=== PATIENT | male | born 1970 | race Caucasian/White ===

== ENCOUNTER 2021-09-22 07:02 | Outpatient (REF) | payer OTHER, SELFPAY ==
[2021-09-22 10:35] LABS: MANUAL DIFF FLAG NO
[2021-09-22 10:42] LABS: Basophils Percent Auto 0.3 % (0-2); Eosinophils Absolute Auto 0.1 X10*3/uL (0.0-0.4); Hematocrit 39.5 % (42.0-52.0); Hemoglobin 13.4 g/dl (14.0-18.0); Imm Gran Abs Auto 0.02 X10*3/uL (0.00-0.03); Imm Gran Pct Auto 0.3 % (0.0-0.4); Lymphocytes Percent Auto 31.5 % (20-40); Mean Corpuscular HGB Conc 33.9 g/dl (31.0-36.0); Mean Corpuscular Hemoglobin 30.6 pg (27.0-33.0); Mean Corpuscular Volume 90.2 fL (80.0-98.0); Mean Platelet Volume 10.2 fL (9.4-12.4); Monocytes Absolute Auto 0.6 X10*3/uL (0.1-1.2); Monocytes Percent Auto 9.1 % (2-11); Neutrophils Absolute Auto 3.7 x10*3/uL (2.0-8.3); Neutrophils Percent Auto 56.8 % (45-73); Platelet Count 287 X10*3/uL (160-400); Red Blood Count 4.38 X10*6/uL (4.60-5.80); Red Cell Distribution Width 12.6 % (11.0-16.0); White Blood Count 6.5 X10*3/uL (4.8-10.8)
[2021-09-22 11:24] LABS: Alanine Aminotransferase 16 U/L (0-40); Alkaline Phosphatase 98 U/L (39-117); Anion Gap 12 (12-20); Aspartate Amino Transferase 18 U/L (5-37); Bilirubin Total 0.7 mg/dL (0.0-1.0); Blood Urea Nitrogen 14 mg/dL (9-16); Carbon Dioxide 27 mmol/L (22-29); Chloride 105 mmol/L (96-108); Cholesterol 150 mg/dL; Estimated Glomerular Filt Rate > 60; Glucose Fasting 104 mg/dL (60-99); HDL Cholesterol 36 mg/dL; LDL Cholesterol Calculated 98 mg/dl; Potassium 3.8 mmol/L (3.3-5.1); Sodium 140 mmol/L (135-145); Total Protein 6.7 g/dL (6.5-8.0); Triglycerides 80 mg/dL
[2021-09-22 11:25] LABS: TSH reflex Free T4 1.05 uIU/mL (0.32-4.0)
[2021-09-22 11:37] LABS: HBS Num1 69.38 mIU/mL (0-7.99); HIV AB/AG Nonreactive (Nonreactive); HIV Num 1 0.08 S/CO (0.00-0.99); Hepatitis B Core Antibody Nonreactive (Nonreactive); Hepatitis B Surface Antigen Negative (Negative); ~Hepatitis B Surface Antibody REACTIVE (Nonreactive); ~Hepatitis C Antibody Nonreactive (Nonreactive)
[2021-09-23 08:22] LABS: Syphilis Screen Nonreactive (Nonreactive)
[2021-09-27 15:17] LABS: Testosterone, Free 110.6 pg/mL (35.0-155.0); Testosterone, Total 687 ng/dL (250-1100)
== END 2021-09-22 07:03 | disposition home or self-care (01) ==
LOC: HO.WFDLDS 07:02
PROVIDERS: Visit Provider Family Medicine
DX: Z00.00 Encounter for general adult medical examination without abnormal findings (principal); Z12.5 Encounter for screening for malignant neoplasm of prostate; Z11.4 Encounter for screening for human immunodeficiency virus [HIV]; Z11.3 Encounter for screening for infections with a predominantly sexual mode of transmission; E29.1 Testicular hypofunction
CPT/HCPCS: 80053; 80061; 84153; 84402; 84403; 84443; 85025; 86704; 86706; 86780; 86803; 87340; 87389

== ENCOUNTER → 2021-11-25 10:26 | Outpatient (BNVA) | payer OTHER, MEDICAID, SELFPAY | PROVIDERS: PCP Family Medicine; Visit Provider Internal Medicine | DX: F11.20 Opioid dependence, uncomplicated (principal); F14.10 Cocaine abuse, uncomplicated; F32.9 Major depressive disorder, single episode, unspecified | CPT/HCPCS: 80305 ==

== ENCOUNTER 2022-10-23 06:04 | Outpatient (REF) | payer OTHER, MEDICAID, SELFPAY ==
--- NOTE | ~2022-10-23 | XR_ITS ---
EXAMINATION: XR CHEST CLINICAL INFORMATION: Other specified symptoms and signs involving the respiratory system. COMPARISON: Previous chest x-ray April 2013. TECHNIQUE: 2 views of the chest were obtained. FINDINGS: The cardiac and mediastinal contours are stable. The lungs are clear. There is no pleural effusion or pneumothorax. There are degenerative changes of the spine. XR/XR chest 2V IMPRESSION: No evidence for acute disease in the chest.
== END 2022-10-23 06:05 | disposition home or self-care (01) ==
LOC: HO.XRAY 06:04
PROVIDERS: PCP Family Medicine; Visit Provider Family Medicine
DX: R09.89 Other specified symptoms and signs involving the circulatory and respiratory systems (principal)
CPT/HCPCS: 71046

== ENCOUNTER 2022-12-10 19:18 | Emergency (ER) | payer OTHER, MEDICAID, SELFPAY ==
--- NOTE | ~2022-12-10 | XR_ITS ---
EXAMINATION: XR CHEST CLINICAL INFORMATION: Palpitations. COMPARISON: Chest radiograph 10/23/2022. TECHNIQUE: Frontal view of the chest was obtained. FINDINGS: No significant abnormality is noted involving the heart, lungs, mediastinum, bony thorax or soft tissues. XR/XR chest 1V IMPRESSION: Unremarkable examination.
[2022-12-10 19:23] VITALS: BP 121/97; PULSE 110; RESP 18; TEMP 37; O2SAT 96; BMI 34.4
--- NOTE | 2022-12-10 19:23 | ECG_ITS ---
Test Reason : CHEST PAIN Blood Pressure : / mmHG Vent. Rate : 107 BPM Atrial Rate : 107 BPM P-R Int : 170 ms QRS Dur : 078 ms QT Int : 312 ms P-R-T Axes : 043 048 079 degrees QTc Int : 416 ms Sinus tachycardia Minimal voltage criteria for LVH, may be normal variant ( Sokolow-Monzon ) Nonspecific T wave abnormality Abnormal ECG No previous ECGs available Referred By: Matthew Raymundo Electronically Signed By:VERONICA GRAY MD
--- NOTE | 2022-12-10 19:25 | ED_ITS ---
HPI - General Adult General Chief complaint: Chest Pain <YUMIKO Ellington - Last Filed: 12/11/22 13:07> Stated complaint: chest palpitations <YUMIKO Ellington - Last Filed: 12/11/22 13:07> Time Seen by Provider: 12/10/22 19:49 <YUMIKO Ellington - Last Filed: 12/11/22 13:07> Source: patient <Toribio Thakkar MD - Last Filed: 12/11/22 00:58> Mode of arrival: ambulatory <Toribio Thakkar MD - Last Filed: 12/11/22 00:58> Limitations: no limitations <Toribio Thakkar MD - Last Filed: 12/11/22 00:58> History of Present Illness HPI narrative: Patient been having episodes of palpitation off and on for last 3 weeks was seen at [facility] last week for same workup negative patient does have history of anxiety, feels very anxious on arrival does have history of substance abuse but been sober for a while no significant alcohol use no dizziness or syncope e pisode no chest pain <Toribio Thakkar MD - Last Filed: 12/11/22 00:58> Related Data Home medications: Previous Rx's Medication Instructions Recorded syringe with needle, safety 3 mL #100 ea 03/02/22 22 gauge x 1 1/2 omeprazole 40 mg capsule,delayed 40 mg PO DAILY 30 days #30 caps 05/25/22 release bisacodyl 5 mg tablet,delayed 10 mg PO ONCE colonoscopy prep 1 06/14/22 release (Dulcolax (bisacodyl)) day #2 tabs polyethylene glycol 3350 17 238 g PO ONCE 1 day #238 grams 06/14/22 gram/dose oral powder (Miralax) lactulose 10 gram/15 mL oral 15 ml PO BEDTIME PRN for 06/16/22 solution constipation #1,419 mL carbamide peroxide 6.5 % ear drops 5 drp otic (ear) right DAILY 4 08/16/22 (Debrox) days #15 mL fluticasone propionate 50 1 spray intranasal Q12H 30 days 08/16/22 mcg/actuation nasal #16 grams spray,suspension (Flonase Allergy Relief) bupropion HCl 150 mg tablet,12 hr 150 mg PO BID 30 days #60 tabs 01/02/23 sustained-release prednisone 20 mg tablet 40 mg PO DAILY 5 days #10 tabs 10/17/22 furosemide 40 mg tablet 20 mg PO DAILY 30 days #15 tabs 10/26/22 amlodipine 5 mg tablet 5 mg PO DAILY 30 days #30 tabs 11/13/22 testosterone cypionate 200 mg/mL 100 mg (0.5 mL) IM QWEEK 28 days 11/14/22 intramuscular oil #2 mL sildenafil 100 mg tablet 100 mg PO DAILY PRN sexual 11/24/22 activity 30 days #4 tabs <YUMIKO Ellington - Last Filed: 12/11/22 13:07> Allergies/adverse reactions: Allergies Allergy/AdvReac Type Severity Reaction Status Date / Time trazodone [TRAZODONE] Allergy Intermediate vomiting Verified 12/10/22 19:22 <YUMIKO Ellington - Last Filed: 12/11/22 13:07> Review of Systems Review of Systems: Yes all other systems are reviewed and are negative <Toribio Thakkar MD - Last Filed: 12/11/22 00:58> [facility] Past Medical History Medical History: Medical History Cocaine use disorder Depression Heartburn Hernia Leg swelling Low testosterone in male <YUMIKO Ellington - Last Filed: 12/11/22 13:07> Surgical History: Surgical History Hx of colonoscopy <YUMIKO Ellington - Last Filed: 12/11/22 13:07> Family History Family History: Family History Mother Emphysema of lung Cancer Father Cancer Emphysema of lung Substance use disorder <YUMIKO Ellington - Last Filed: 12/11/22 13:07> Social History Social History: Social History Housing: House Alcohol intake: never Patient Tobacco Use Status: Current everyday Tobacco user Tobacco use type: Cigarette Cigarette Packs Per Day: 1 Smoked in Last 30 Days: Yes e-Cigarette/Vaping Use: Never Used Second Hand Smoke Exposure: Yes Use of substances other than those prescribed or required for medical reasons: No Substance Use Type: Crack/Cocaine, Heroin and Marijuana Advance Directives: No Advance Directives Information Provided: No service: No Current occupational status: employed Current occupation: [email or web address] director Current occupational exposures/hazards: No Cognitive needs: No Hearing needs: No Vision needs: No <YUMIKO Ellington - Last Filed: 12/11/22 13:07> Physical Exam ED Vital Signs: Vital Signs - 24 hr 12/10/22 19:23 12/10/22 20:35 Temperature 98.6 F Pulse Rate 110 H 95 Respiratory Rate 18 16 Blood Pressure 121/97 H 166/85 H Pulse Oximetry 96 99 Oxygen Delivery Method Room Air Room Air BMI result Body Mass Index 34.4 <YUMIKO Ellington - Last Filed: 12/11/22 13:07> Vital Signs - 24 hr 12/10/22 19:23 12/10/22 20:35 Temperature 98.6 F Pulse Rate 110 H 95 Respiratory Rate 18 16 Blood Pressure 121/97 H 166/85 H Pulse Oximetry 96 99 Oxygen Delivery Method Room Air Room Air BMI result Body Mass Index 34.4 <Toribio Thakkar MD - Last Filed: 12/11/22 00:58> Appearance: Alert. Oriented Xreact ENT: Pharynx normal. Oral Mucosa moist Neck: Normal inspection. Neck supple. CVS: Normal heart rate and rhythm. Pulses normal. No murmur/rubs/gallops Respiratory: No respiratory distress. Equal air entry bilateral, no wheezing/rales/rhonchi Abdomen: Soft and nontender. Bowel sounds are present, no mass palpable, no CVA tenderness Skin: Skin warm and dry. Normal skin color. Normal skin turgor. Extremities: No lower extremity edema. No calf tenderness Neuro: Oriented X 3. No motor deficit. <Toribio Thakkar MD - Last Filed: 12/11/22 00:58> Course Course Course Narrative: RME: 52 yold male presents to the ED for chest palpitations for couple of weeks. Deneis chest pain and more palpitations. labs/EKG, and chest xray ordered <YUMIKO Ellington - Last Filed: 12/11/22 13:07> Medical Decision Making Medical Decision Making MDM Narrative: Patient with palpitation episode manager cardiac showed occasional unifocal PVCs no arrhythmias notice otherwise labs are stable discharge patient home advised to decrease caffeine and stress <Toribio Thakkar MD - Last Filed: 12/11/22 00:58> Differential Diagnosis Differential Diagnoses: The differential diagnosis associated with the presentation includes <Toribio Thakkar MD - Last Filed: 12/11/22 00:58> SVT/AFib/PVCs/PACs <Toribio Thakkar MD - Last Filed: 12/11/22 00:58> Lab Data [facility] Lab Attestation statement: I reviewed the patient's lab results. <Toribio Thakkar MD - Last Filed: 12/11/22 00:58> Result Diagrams: 12/10/22 20:16 12/10/22 20:16 <YUMIKO Ellingotn - Last Filed: 12/11/22 13:07> Labs: Lab Results 12/10/22 12/10/22 12/10/22 Range/Units 20:16 20:16 20:16 WBC 11.6 H (4.8-10.8) X10*3/uL RBC 5.11 (4.60-5.80) X10*6/uL Hgb 15.2 (14.0-18.0) g/dl Hct 44.8 (42.0-52.0) % MCV 87.7 (80.0-98.0) fL MCH 29.7 (27.0-33.0) pg MCHC 33.9 (31.0-36.0) g/dl RDW 12.7 (11.0-16.0) % Plt Count 280 (160-400) X10*3/uL MPV 10.1 (9.4-12.4) fL Immature Gran % (Auto) 0.3 (0.0-0.4) % Neut % (Auto) 66.5 (45-73) % Lymph % (Auto) 22.6 (20-40) % Brule % (Auto) 9.1 (2-11) % Eos % (Auto) 1.2 (0-4) % Baso % (Auto) 0.3 (0-2) % Lymph # (Auto) 2.6 (1.2-4.9) X10*3/uL Brule # (Auto) 1.1 (0.1-1.2) X10*3/uL Eos # (Auto) 0.1 (0.0-0.4) X10*3/uL Baso # (Auto) 0.0 (0.0-0.2) X10*3/uL Abs Immat Gran (auto) 0.04 H (0.00-0.03) X10*3/uL Absolute Neuts (auto) 7.7 (2.0-8.3) x10*3/uL Absolute Nucleated RBC 0.000 (0.0-0.012) X10*3/uL Nucleated RBC % (auto) 0.0 (0.0-0.2) /100WBC PT 12.1 (10.0-13.1) SEC INR 1.1 (0.9-1.1) APTT 31.6 (26.0-36.4) SEC Sodium 140 (135-145) mmol/L Potassium 4.3 (3.3-5.1) mmol/L Chloride 102 (96-108) mmol/L Carbon Dioxide 30 H (22-29) mmol/L Anion Gap 12 (12-20) BUN 19 H (9-16) mg/dL Creatinine 0.99 (0.5-1.4) mg/dL Estim Creat Clear Calc 106.6 Estimated GFR > 60 Random Glucose 97 (60-115) mg/dL Calcium 9.1 (8.4-10.2) mg/dL Magnesium 2.1 (1.6-2.6) mg/dL Total Bilirubin 0.3 (0.0-1.0) mg/dL AST 22 (5-37) U/L ALT 33 (0-40) U/L Alkaline Phosphatase 90 (39-117) U/L Troponin I High Sens (<3.5-35.0) ng/L B-Natriuretic Peptide (<100) pg/mL Total Protein 6.9 (6.5-8.0) g/dL Albumin 4.3 (3.5-5.0) g/dL TSH 0.71 (0.32-4.0) uIU/mL 12/10/22 12/10/22 Range/Units 20:16 20:16 WBC (4.8-10.8) X10*3/uL RBC (4.60-5.80) X10*6/uL Hgb (14.0-18.0) g/dl Hct (42.0-52.0) % MCV (80.0-98.0) fL MCH (27.0-33.0) pg MCHC (31.0-36.0) g/dl RDW (11.0-16.0) % Plt Count (160-400) X10*3/uL MPV (9.4-12.4) fL Immature Gran % (Auto) (0.0-0.4) % Neut % (Auto) (45-73) % Lymph % (Auto) (20-40) % Brule % (Auto) (2-11) % Eos % (Auto) (0-4) % Baso % (Auto) (0-2) % Lymph # (Auto) (1.2-4.9) X10*3/uL Brule # (Auto) (0.1-1.2) X10*3/uL Eos # (Auto) (0.0-0.4) X10*3/uL Baso # (Auto) (0.0-0.2) X10*3/uL Abs Immat Gran (auto) (0.00-0.03) X10*3/uL Absolute Neuts (auto) (2.0-8.3) x10*3/uL Absolute Nucleated RBC (0.0-0.012) X10*3/uL Nucleated RBC % (auto) (0.0-0.2) /100WBC PT (10.0-13.1) SEC INR (0.9-1.1) APTT (26.0-36.4) SEC Sodium (135-145) mmol/L Potassium (3.3-5.1) mmol/L Chloride (96-108) mmol/L Carbon Dioxide (22-29) mmol/L Anion Gap (12-20) BUN (9-16) mg/dL Creatinine (0.5-1.4) mg/dL Estim Creat Clear Calc Estimated GFR Random Glucose (60-115) mg/dL Calcium (8.4-10.2) mg/dL Magnesium (1.6-2.6) mg/dL Total Bilirubin (0.0-1.0) mg/dL AST (5-37) U/L ALT (0-40) U/L Alkaline Phosphatase (39-117) U/L Troponin I High Sens 3.5 (<3.5-35.0) ng/L B-Natriuretic Peptide < 10 (<100) pg/mL Total Protein (6.5-8.0) g/dL Albumin (3.5-5.0) g/dL TSH (0.32-4.0) uIU/mL <YUMIKO Ellington - Last Filed: 12/11/22 13:07> Lab Results 12/10/22 12/10/22 12/10/22 Range/Units 20:16 20:16 20:16 WBC 11.6 H (4.8-10.8) X10*3/uL RBC 5.11 (4.60-5.80) X10*6/uL Hgb 15.2 (14.0-18.0) g/dl Hct 44.8 (42.0-52.0) % MCV 87.7 (80.0-98.0) fL MCH 29.7 (27.0-33.0) pg MCHC 33.9 (31.0-36.0) g/dl RDW 12.7 (11.0-16.0) % Plt Count 280 (160-400) X10*3/uL MPV 10.1 (9.4-12.4) fL Immature Gran % (Auto) 0.3 (0.0-0.4) % Neut % (Auto) 66.5 (45-73) % Lymph % (Auto) 22.6 (20-40) % Brule % (Auto) 9.1 (2-11) % Eos % (Auto) 1.2 (0-4) % Baso % (Auto) 0.3 (0-2) % Lymph # (Auto) 2.6 (1.2-4.9) X10*3/uL Brule # (Auto) 1.1 (0.1-1.2) X10*3/uL Eos # (Auto) 0.1 (0.0-0.4) X10*3/uL Baso # (Auto) 0.0 (0.0-0.2) X10*3/uL Abs Immat Gran (auto) 0.04 H (0.00-0.03) X10*3/uL Absolute Neuts (auto) 7.7 (2.0-8.3) x10*3/uL Absolute Nucleated RBC 0.000 (0.0-0.012) X10*3/uL Nucleated RBC % (auto) 0.0 (0.0-0.2) /100WBC PT 12.1 (10.0-13.1) SEC INR 1.1 (0.9-1.1) APTT 31.6 (26.0-36.4) SEC Sodium 140 (135-145) mmol/L Potassium 4.3 (3.3-5.1) mmol/L Chloride 102 (96-108) mmol/L Carbon Dioxide 30 H (22-29) mmol/L Anion Gap 12 (12-20) BUN 19 H (9-16) mg/dL Creatinine 0.99 (0.5-1.4) mg/dL Estim Creat Clear Calc 106.6 Estimated GFR > 60 Random Glucose 97 (60-115) mg/dL Calcium 9.1 (8.4-10.2) mg/dL Magnesium 2.1 (1.6-2.6) mg/dL Total Bilirubin 0.3 (0.0-1.0) mg/dL AST 22 (5-37) U/L ALT 33 (0-40) U/L Alkaline Phosphatase 90 (39-117) U/L Troponin I High Sens (<3.5-35.0) ng/L B-Natriuretic Peptide (<100) pg/mL Total Protein 6.9 (6.5-8.0) g/dL Albumin 4.3 (3.5-5.0) g/dL TSH 0.71 (0.32-4.0) uIU/mL 12/10/22 12/10/22 Range/Units 20:16 20:16 WBC (4.8-10.8) X10*3/uL RBC (4.60-5.80) X10*6/uL Hgb (14.0-18.0) g/dl Hct (42.0-52.0) % MCV (80.0-98.0) fL MCH (27.0-33.0) pg MCHC (31.0-36.0) g/dl RDW (11.0-16.0) % Plt Count (160-400) X10*3/uL MPV (9.4-12.4) fL Immature Gran % (Auto) (0.0-0.4) % Neut % (Auto) (45-73) % Lymph % (Auto) (20-40) % Brule % (Auto) (2-11) % Eos % (Auto) (0-4) % Baso % (Auto) (0-2) % Lymph # (Auto) (1.2-4.9) X10*3/uL Brule # (Auto) (0.1-1.2) X10*3/uL Eos # (Auto) (0.0-0.4) X10*3/uL Baso # (Auto) (0.0-0.2) X10*3/uL Abs Immat Gran (auto) (0.00-0.03) X10*3/uL Absolute Neuts (auto) (2.0-8.3) x10*3/uL Absolute Nucleated RBC (0.0-0.012) X10*3/uL Nucleated RBC % (auto) (0.0-0.2) /100WBC PT (10.0-13.1) SEC INR (0.9-1.1) APTT (26.0-36.4) SEC Sodium (135-145) mmol/L Potassium (3.3-5.1) mmol/L Chloride (96-108) mmol/L Carbon Dioxide (22-29) mmol/L Anion Gap (12-20) BUN (9-16) mg/dL Creatinine (0.5-1.4) mg/dL Estim Creat Clear Calc Estimated GFR Random Glucose (60-115) mg/dL Calcium (8.4-10.2) mg/dL Magnesium (1.6-2.6) mg/dL Total Bilirubin (0.0-1.0) mg/dL AST (5-37) U/L ALT (0-40) U/L Alkaline Phosphatase (39-117) U/L Troponin I High Sens 3.5 (<3.5-35.0) ng/L B-Natriuretic Peptide < 10 (<100) pg/mL Total Protein (6.5-8.0) g/dL Albumin (3.5-5.0) g/dL TSH (0.32-4.0) uIU/mL <Toribio Thakkar MD - Last Filed: 12/11/22 00:58> Discharge Plan Discharge Clinical Impression: Heart palpitations <YUMIKO Ellington - Last Filed: 12/11/22 13:07> Patient Disposition: Home, Self-Care <YUMIKO Ellington - Last Filed: 12/11/22 13:07> Instructions: Heart Palpitations (ED) <YUMIKO Ellington - Last Filed: 12/11/22 13:07> Additional Instructions: Relax avoid caffeine drink Follow-up with wholesale and retail merchant/PCP for further monitoring including Holter placement Report to the ER if passing out episode/worsening of palpitation <YUMIKO Ellington - Last Filed: 12/11/22 13:07> Prescriptions: No Action (DME) syringe with needle, safety 3 mL 22 gauge x 1 1/2 syringe See Rx Instructions .ROUTE DIRECTED Qty: 100 11RF Rx Instructions: As directed lactulose 10 gram/15 mL solution 15 ml PO BEDTIME PRN (Reason: for constipation) Qty: 1419 0RF bupropion HCl 150 mg tablet sustained-release 12 hr 150 mg PO BID 30 Days Qty: 60 2RF furosemide 40 mg tablet 20 mg PO DAILY 30 Days Qty: 15 2RF amlodipine 5 mg tablet 5 mg PO DAILY 30 Days Qty: 30 2RF testosterone cypionate 200 mg/mL oil 100 mg IM QWEEK 28 Days Qty: 2 1RF sildenafil 100 mg tablet 100 mg PO DAILY PRN (Reason: sexual activity) 30 Days Qty: 4 2RF Rx Instructions: administer 30 minutes to 4 hours before activity omeprazole 40 mg capsule,delayed release(DR/EC) 40 mg PO DAILY 30 Days Qty: 30 2RF Debrox 6.5 % drops 5 drp otic (ear) right DAILY 4 Days Qty: 15 0RF fluticasone propionate [Flonase Allergy Relief] 50 mcg/actuation spr ay,suspension 1 spray intranasal Q12H 30 Days Qty: 16 2RF Rx Instructions: administer into each nostril prednisone 20 mg tablet 40 mg PO DAILY 5 Days Qty: 10 0RF bisacodyl [Dulcolax (bisacodyl)] 5 mg tablet,delayed release (DR/EC) 10 mg PO ONCE 1 Days Qty: 2 0RF Rx Instructions: Take 2 tablets by mouth at 12:00pm the day before your procedure. polyethylene glycol 3350 [Miralax] 17 gram/dose powder 238 g PO ONCE 1 Days Qty: 238 0RF Rx Instructions: Take as directed by mouth the day before your procedure. <YUMIKO Ellington - Last Filed: 12/11/22 13:07> Interventions: ED Discharge Assessment Last Done: 12/10/22 21:51 <YUMIKO Ellington - Last Filed: 12/11/22 13:07> Discharge Date/Time: 12/10/22 21:51 <YUMIKO Ellington - Last Filed: 12/11/22 13:07>
[2022-12-10 20:22] LABS: MANUAL DIFF FLAG NO
[2022-12-10 20:23] LABS: Basophils Percent Auto 0.3 % (0-2); Eosinophils Absolute Auto 0.1 X10*3/uL (0.0-0.4); Eosinophils Percent Auto 1.2 % (0-4); Hematocrit 44.8 % (42.0-52.0); Hemoglobin 15.2 g/dl (14.0-18.0); Imm Gran Abs Auto 0.04 X10*3/uL (0.00-0.03); Imm Gran Pct Auto 0.3 % (0.0-0.4); Lymphocytes Absolute Auto 2.6 X10*3/uL (1.2-4.9); Lymphocytes Percent Auto 22.6 % (20-40); Mean Corpuscular HGB Conc 33.9 g/dl (31.0-36.0); Mean Corpuscular Hemoglobin 29.7 pg (27.0-33.0); Mean Corpuscular Volume 87.7 fL (80.0-98.0); Mean Platelet Volume 10.1 fL (9.4-12.4); Monocytes Absolute Auto 1.1 X10*3/uL (0.1-1.2); Monocytes Percent Auto 9.1 % (2-11); Neutrophils Absolute Auto 7.7 x10*3/uL (2.0-8.3); Neutrophils Percent Auto 66.5 % (45-73); Platelet Count 280 X10*3/uL (160-400); Red Blood Count 5.11 X10*6/uL (4.60-5.80); Red Cell Distribution Width 12.7 % (11.0-16.0); White Blood Count 11.6 X10*3/uL (4.8-10.8)
[2022-12-10 20:30] LABS: INTERNATIONAL NORM RATIO 1.1 (0.9-1.1); Prothrombin Time 12.1 SEC (10.0-13.1)
[2022-12-10 20:33] LABS: Partial Thromboplastin Time 31.6 SEC (26.0-36.4)
[2022-12-10 20:35] VITALS: BP 166/85; PULSE 95; RESP 16; O2SAT 99
[2022-12-10 20:43] LABS: B Type Natriuretic Peptide < 10 pg/mL (<100)
[2022-12-10 20:45] LABS: Alanine Aminotransferase 33 U/L (0-40); Albumin Level 4.3 g/dL (3.5-5.0); Alkaline Phosphatase 90 U/L (39-117); Anion Gap 12 (12-20); Aspartate Amino Transferase 22 U/L (5-37); Bilirubin Total 0.3 mg/dL (0.0-1.0); Blood Urea Nitrogen 19 mg/dL (9-16); Calcium 9.1 mg/dL (8.4-10.2); Carbon Dioxide 30 mmol/L (22-29); Chloride 102 mmol/L (96-108); Creatinine Clr Calc Pharmacy 106.6; Estimated Glomerular Filt Rate > 60; Glucose Random 97 mg/dL (60-115); Magnesium 2.1 mg/dL (1.6-2.6); Potassium 4.3 mmol/L (3.3-5.1); Sodium 140 mmol/L (135-145); Total Protein 6.9 g/dL (6.5-8.0)
[2022-12-10 20:46] LABS: Troponin-I High Sensitivity 3.5 ng/L (<3.5-35.0)
[2022-12-10 21:00] LABS: TSH reflex Free T4 0.71 uIU/mL (0.32-4.0)
== END 2022-12-10 21:51 | disposition home or self-care (01) ==
PROVIDERS: Physician Assistant; Emergency Provider Internal Medicine; PCP Family Medicine
DX: R07.89 Other chest pain (principal); R00.2 Palpitations; R06.02 Shortness of breath; F17.210 Nicotine dependence, cigarettes, uncomplicated; Z71.6 Tobacco abuse counseling; Z79.899 Other long term (current) drug therapy
CPT/HCPCS: 36415; 71045; 80053; 83735; 83880; 84443; 84484; 85025; 85610; 85730; 93005; 99284; 99285

== ENCOUNTER 2022-12-20 07:38 | Inpatient (IN) | payer OTHER, SELFPAY ==
[2022-12-20 07:57] VITALS: BP 137/93; PULSE 111; RESP 18; TEMP 36.9; O2SAT 96; BMI 34.4
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
--- NOTE | 2022-12-20 08:25 | ECG_ITS ---
Test Reason : amc Blood Pressure : / mmHG Vent. Rate : 109 BPM Atrial Rate : 109 BPM P-R Int : 164 ms QRS Dur : 084 ms QT Int : 334 ms P-R-T Axes : 003 022 053 degrees QTc Int : 449 ms Sinus tachycardia Cannot rule out Anterior infarct , age undetermined Abnormal ECG When compared with ECG of 10-DEC-2022 19:40, No significant change was found Referred By: Emily Skinner Electronically Signed By:XAVIER ACUÑA
[2022-12-20 09:24] LABS: MANUAL DIFF FLAG NO
[2022-12-20 09:26] LABS: Basophils Percent Auto 0.4 % (0-2); Eosinophils Absolute Auto 0.1 X10*3/uL (0.0-0.4); Eosinophils Percent Auto 0.6 % (0-4); Hematocrit 47.4 % (42.0-52.0); Hemoglobin 16.2 g/dl (14.0-18.0); Imm Gran Abs Auto 0.06 X10*3/uL (0.00-0.03); Imm Gran Pct Auto 0.6 % (0.0-0.4); Lymphocytes Absolute Auto 1.8 X10*3/uL (1.2-4.9); Lymphocytes Percent Auto 16.7 % (20-40); Mean Corpuscular HGB Conc 34.2 g/dl (31.0-36.0); Mean Corpuscular Hemoglobin 29.8 pg (27.0-33.0); Mean Corpuscular Volume 87.3 fL (80.0-98.0); Mean Platelet Volume 9.9 fL (9.4-12.4); Monocytes Absolute Auto 0.9 X10*3/uL (0.1-1.2); Monocytes Percent Auto 7.9 % (2-11); Neutrophils Percent Auto 73.8 % (45-73); Platelet Count 323 X10*3/uL (160-400); Red Blood Count 5.43 X10*6/uL (4.60-5.80); Red Cell Distribution Width 12.7 % (11.0-16.0); White Blood Count 10.8 X10*3/uL (4.8-10.8)
[2022-12-20 09:38] LABS: Ethanol < 10 mg/dL
[2022-12-20 09:41] LABS: Alanine Aminotransferase 41 U/L (0-40); Albumin Level 4.4 g/dL (3.5-5.0); Alkaline Phosphatase 102 U/L (39-117); Anion Gap 15 (12-20); Aspartate Amino Transferase 19 U/L (5-37); Bilirubin Direct 0.1 mg/dL (0.0-0.5); Bilirubin Total 0.3 mg/dL (0.0-1.0); Blood Urea Nitrogen 22 mg/dL (9-16); Calcium 9.1 mg/dL (8.4-10.2); Carbon Dioxide 23 mmol/L (22-29); Chloride 105 mmol/L (96-108); Creatinine Clr Calc Pharmacy 100.5; Estimated Glomerular Filt Rate > 60; Glucose Random 158 mg/dL (60-115); Magnesium 2.2 mg/dL (1.6-2.6); Potassium 4.5 mmol/L (3.3-5.1); Sodium 138 mmol/L (135-145); Total Protein 7.2 g/dL (6.5-8.0)
[2022-12-20 09:43] LABS: COVID-19 Test Negative (Negative); IDNOW Serial# BCCEAD1C
--- NOTE | 2022-12-20 09:54 | PC.NURSE ---
Pt reporting feeling safe in this space. Denies SI at this time. Denies AH,HI. Pt eating and drinking. No dangerous behaviors noted.
[2022-12-20 10:01] LABS: Amphetamine Screen Urine Not Detected (Not Detect); Barbiturates, Urine Not Detected (Not Detect); Benzodiazepines Screen Urine Not Detected (Not Detect); Cannabinoid Screen Urine Not Detected (Not Detect); Cocaine Screen Urine Not Detected (Not Detect); Fentanyl, urine POSITIVE (Not Detect); Opiate Screen Urine Not Detected (Not Detect); Phencyclidine Screen Urine Not Detected (Not Detect)
--- NOTE | 2022-12-20 13:12 | PC.NURSE ---
Pt requesting to be discharged. Care Team Notified.
--- NOTE | 2022-12-20 15:00 | PHA.MEDREC ---
Pharmacy Consult ? Medication Reconciliation Pharmacy has completed the medication reconciliation. Pharmacy has reviewed med rec done by nurse in the pod.
[2022-12-20] MEDS: LORazepam 1 MG TABLET 2 MG PO (19:58)
[2022-12-20 23:18] VITALS: BP 135/92; PULSE 85; TEMP 36.3; O2SAT 96
[2022-12-20] MEDS: Acetaminophen 325 MG TABLET 650 MG PO (23:41)
[2022-12-20] MEDS: cloNIDine HCL 0.1 MG TABLET PO (23:41)
--- NOTE | 2022-12-21 02:42 | PC.ADMIT ---
Philip was admitted to unit from the ER at 2305 via stretcher escorted by staff. He is alert, cooperative with vital signs, verbalized feeling safe with no SI/AVH. reported feeling tired and wanted to go to bed, escorted to his room after skin/sharps check completed by counselor. Admission assessment to be completed in the morning.
[2022-12-21] MEDS: amLODIPine Besylate 5 MG TABLET PO (08:27)
[2022-12-21] MEDS: Omeprazole 40 MG CAPSULE.DR PO (08:27)
[2022-12-21] MEDS: Furosemide 20 MG TABLET PO (08:28)
[2022-12-21] MEDS: buPROPion HCl XL 300 MG TAB.ER.24H PO (08:28)
[2022-12-21 09:00] VITALS: BP 134/95; PULSE 90; RESP 17; TEMP 36.9; O2SAT 98
[2022-12-21 09:12] LABS: Alanine Aminotransferase 34 U/L (0-40); Albumin Level 4.2 g/dL (3.5-5.0); Alkaline Phosphatase 100 U/L (39-117); Anion Gap 14 (12-20); Aspartate Amino Transferase 17 U/L (5-37); Bilirubin Total 0.6 mg/dL (0.0-1.0); Blood Urea Nitrogen 17 mg/dL (9-16); Calcium 9.2 mg/dL (8.4-10.2); Carbon Dioxide 26 mmol/L (22-29); Chloride 106 mmol/L (96-108); Cholesterol 186 mg/dL; Estimated Glomerular Filt Rate > 60; Glucose Fasting 104 mg/dL (60-99); HDL Cholesterol 38 mg/dL; LDL Cholesterol Calculated 128 mg/dl; Potassium 4.8 mmol/L (3.3-5.1); Sodium 141 mmol/L (135-145); Total Protein 6.9 g/dL (6.5-8.0); Triglycerides 100 mg/dL
[2022-12-21 09:43] LABS: Folate 14.9 ng/mL (> or = 4.0); TSH reflex Free T4 0.99 uIU/mL (0.32-4.0); Vitamin B12 418 pg/mL (200-900)
[2022-12-21 11:03] VITALS: BMI 31.6
[2022-12-21 12:28] LABS: Amphetamine Screen Urine Not Detected (Not Detect); Barbiturates, Urine Not Detected (Not Detect); Benzodiazepines Screen Urine Not Detected (Not Detect); Cannabinoid Screen Urine Not Detected (Not Detect); Cocaine Screen Urine Not Detected (Not Detect); Fentanyl, urine POSITIVE (Not Detect); Opiate Screen Urine Not Detected (Not Detect); Phencyclidine Screen Urine Not Detected (Not Detect)
--- NOTE | 2022-12-21 17:06 | HO.PSYCHPN ---
Subjective Subjective Reason For Visit: SI Paranoia Diagnostics Vital Signs (24Hr): Vital Signs - 24 hr 12/20/22 23:18 12/21/22 09:00 Temperature 97.3 F 98.5 F Pulse Rate 85 90 Respiratory Rate 17 Blood Pressure 135/92 H 134/95 H Pulse Oximetry 96 98 Oxygen Delivery Method Room Air Room Air BMI result Body Mass Index 31.6 Labs 12/20/22 09:18 12/21/22 08:18 Labs: Laboratory Results - last 48 hr 12/20/22 12/20/22 12/20/22 09:18 09:18 09:18 WBC 10.8 RBC 5.43 Hgb 16.2 Hct 47.4 MCV 87.3 MCH 29.8 MCHC 34.2 RDW 12.7 Plt Count 323 MPV 9.9 Immature Gran % (Auto) 0.6 H Neut % (Auto) 73.8 H Lymph % (Auto) 16.7 L [place] % (Auto) 7.9 Eos % (Auto) 0.6 Baso % (Auto) 0.4 Lymph # (Auto) 1.8 [place] # (Auto) 0.9 Eos # (Auto) 0.1 Baso # (Auto) 0.0 Abs Immat Gran (auto) 0.06 H Absolute Neuts (auto) 8.0 Absolute Nucleated RBC 0.000 Nucleated RBC % (auto) 0.0 Sodium 138 Potassium 4.5 Chloride 105 Carbon Dioxide 23 Anion Gap 15 BUN 22 H Creatinine 1.05 Estim Creat Clear Calc 100.5 Estimated GFR > 60 Random Glucose 158 H Fasting Glucose Calcium 9.1 Magnesium 2.2 Total Bilirubin 0.3 Direct Bilirubin 0.1 AST 19 ALT 41 H Alkaline Phosphatase 102 Total Protein 7.2 Albumin 4.4 Triglycerides Cholesterol LDL Cholesterol, Calc HDL Cholesterol Vitamin B12 Folate TSH Urine Opiates Screen Urine Fentanyl Screen Ur Barbiturates Screen Ur Phencyclidine Scrn Ur Amphetamines Screen U Benzodiazepines Scrn Urine Cocaine Screen U Marijuana (THC) Screen Ethyl Alcohol COVID-19 (APRIL) Negative COVID-19 Clin Com See Note 12/20/22 12/20/22 12/21/22 09:18 09:43 08:18 WBC RBC Hgb Hct MCV MCH MCHC RDW Plt Count MPV Immature Gran % (Auto) Neut % (Auto) Lymph % (Auto) [place] % (Auto) Eos % (Auto) Baso % (Auto) Lymph # (Auto) [place] # (Auto) Eos # (Auto) Baso # (Auto) Abs Immat Gran (auto) Absolute Neuts (auto) Absolute Nucleated RBC Nucleated RBC % (auto) Sodium 141 Potassium 4.8 Chloride 106 Carbon Dioxide 26 Anion Gap 14 BUN 17 H Creatinine 0.95 Estim Creat Clear Calc 111.0 Estimated GFR > 60 Random Glucose Fasting Glucose 104 H Calcium 9.2 Magnesium Total Bilirubin 0.6 Direct Bilirubin AST 17 ALT 34 Alkaline Phosphatase 100 Total Protein 6.9 Albumin 4.2 Triglycerides 100 Cholesterol 186 LDL Cholesterol, Calc 128 HDL Cholesterol 38 Vitamin B12 418 Folate 14.9 TSH 0.99 Urine Opiates Screen Not Detected Urine Fentanyl Screen POSITIVE H Ur Barbiturates Screen Not Detected Ur Phencyclidine Scrn Not Detected Ur Amphetamines Screen Not Detected U Benzodiazepines Scrn Not Detected Urine Cocaine Screen Not Detected U Marijuana (THC) Screen Not Detected Ethyl Alcohol < 10 COVID-19 (APRIL) COVID-[facility] 12/21/22 11:09 WBC RBC Hgb Hct MCV MCH MCHC RDW Plt Count MPV Immature Gran % (Auto) Neut % (Auto) Lymph % (Auto) [place] % (Auto) Eos % (Auto) Baso % (Auto) Lymph # (Auto) [place] # (Auto) Eos # (Auto) Baso # (Auto) Abs Immat Gran (auto) Absolute Neuts (auto) Absolute Nucleated RBC Nucleated RBC % (auto) Sodium Potassium Chloride Carbon Dioxide Anion Gap BUN Creatinine Estim Creat Clear Calc Estimated GFR Random Glucose Fasting Glucose Calcium Magnesium Total Bilirubin Direct Bilirubin AST ALT Alkaline Phosphatase Total Protein Albumin Triglycerides Cholesterol LDL Cholesterol, Calc HDL Cholesterol Vitamin B12 Folate TSH Urine Opiates Screen Not Detected Urine Fentanyl Screen POSITIVE H Ur Barbiturates Screen Not Detected Ur Phencyclidine Scrn Not Detected Ur Amphetamines Screen Not Detected U Benzodiazepines Scrn Not Detected Urine Cocaine Screen Not Detected U Marijuana (THC) Screen Not Detected Ethyl Alcohol COVID-19 (APRIL) COVID-[facility] Medications Medications Current Medications Acetaminophen (Acetaminophen 325 Mg Tablet) 650 mg PO Q6H PRN PRN Reason: Headache/Pain Mild Scale (1-3) Last Admin: 12/20/22 23:41 Dose: 650 mg Al Hydroxide/Mg Hydroxide (Magnesium Hydrox/Alum Hydrox 30 Ml Oral.Susp) 30 ml PO Q6H PRN PRN Reason: Heartburn/Nausea Amlodipine Besylate (Amlodipine Besylate 5 Mg Tablet) 5 mg PO DAILY [facility]; Protocol Last Admin: 12/21/22 08:27 Dose: 5 mg Bupropion HCl (Bupropion Hcl Xl 300 Mg Tab.Er.24h) 300 mg PO DAILY [facility] Last Admin: 12/21/22 08:28 Dose: 300 mg Clonidine HCl (Clonidine Hcl 0.1 Mg Tablet) 0.1 mg PO TID PRN; Protocol PRN Reason: Anxiety Last Admin: 12/20/22 23:41 Dose: 0.1 mg Furosemide (Furosemide 20 Mg Tablet) 20 mg PO DAILY [facility]; Protocol Last Admin: 12/21/22 08:28 Dose: 20 mg Hydroxyzine HCl (Hydroxyzine Hcl 25 Mg Tablet) 25 mg PO Q6H PRN PRN Reason: Anxiety Lactulose (Lactulose 20 Gm/30 Ml Solution) 10 gm PO BEDTIME PRN PRN Reason: for constipation Magnesium Hydroxide (Milk Of Magnesia 30 Ml Oral.Susp) 30 ml PO DAILY PRN PRN Reason: Constipation Omeprazole (Omeprazole 40 Mg Capsule.Dr) 40 mg PO DAILY [facility] Last Admin: 12/21/22 08:27 Dose: 40 mg Allergies Allergies Allergy/AdvReac Type Severity Reaction Status Date / Time trazodone [TRAZODONE] Allergy Intermediate vomiting Verified 12/10/22 19:22 Assessment & Plan Time Spent With Patient Time: Total time managing care of this patient today ____ minutes.
--- NOTE | 2022-12-21 17:26 | HO.PSYADMNOT ---
HPI Date of Service: 12/21/22 Chief Complaint: SI Paranoia Sources of Information: patient interviewed, chart reviewed and crisis/core team assessment reviewed Additional Sources of Information: Discharge summary requested from [facility] as pt was just discharged. HPI Subjective Notes: Craft Warning and Section 12B Healthcare Proxy: No Guardianship: No Narrative: 52 yo male, self presented to [facility] ED with reported disorganization of thoughts, SI with plan to crash his car, fear, paranoia. Reported hearing whispers that gangs were after him and were coming to get him at his job. Met with pt and Kristi Moctezuma [facility] and team. Pt is forthcoming, asks to discharge today. Explained 12B. States he was just discharged from [facility] unit after a 7 day stay. Worries that his job is in jeopardy (education provided). Pt reports when he returned home he was hearing voices of young adults telling him that a gang was after him-they were tapping the windows. He planned to purchase cameras to identify who was doing this. In the process of managing these sx, pt lost sleep and when he came to the ER was with significant sleep deprivation. He learned today, when talking with his son's mother who is a tenant that neighbors caught kids harrassing different families in their neighborhood. I took it the wrong way, I feared my life was in danger . With 1.5 days of no sleep states he was acting crazy. After sleeping well, states he feels in an improved state of mind, I took it too seriously . Identifies several stressors: Mother four months ago, pt is the executor, pt may lose the family home and is trying to keep it. 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 Past Psychiatric History: IP: [place]- November 2022 [place]- December 2022 OP: [facility] for therapy- reports no [facility] Med Trials: Call to Sharon Hernandez who report Bupropion SI, Clonidine Medical Evaluation Reviewed: Yes [facility] Medical History Cocaine use disorder Depression Heartburn Hernia Leg swelling Low testosterone in male Surgical History Hx of colonoscopy Social History: Born and raised locally. Has always lived in the area. 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 Substance History: Methadone for 10 years with [facility]. Recently stopped while admitted to [place]. [place] is his onsite case manager. Feeling better off Methadone and hopes to continue. Diagnostics Vital Signs (24Hr): Vital Signs - 24 hr 12/20/22 23:18 12/21/22 09:00 Temperature 97.3 F 98.5 F Pulse Rate 85 90 Respiratory Rate 17 Blood Pressure 135/92 H 134/95 H Pulse Oximetry 96 98 Oxygen Delivery Method Room Air Room Air BMI result Body Mass Index 31.6 Labs 12/20/22 09:18 12/21/22 08:18 Labs: Laboratory Results - last 48 hr 12/20/22 12/20/22 12/20/22 09:18 09:18 09:18 WBC 10.8 RBC 5.43 Hgb 16.2 Hct 47.4 MCV 87.3 MCH 29.8 MCHC 34.2 RDW 12.7 Plt Count 323 MPV 9.9 Immature Gran % (Auto) 0.6 H Neut % (Auto) 73.8 H Lymph % (Auto) 16.7 L Grady % (Auto) 7.9 Eos % (Auto) 0.6 Baso % (Auto) 0.4 Lymph # (Auto) 1.8 Grady # (Auto) 0.9 Eos # (Auto) 0.1 Baso # (Auto) 0.0 Abs Immat Gran (auto) 0.06 H Absolute Neuts (auto) 8.0 Absolute Nucleated RBC 0.000 Nucleated RBC % (auto) 0.0 Sodium 138 Potassium 4.5 Chloride 105 Carbon Dioxide 23 Anion Gap 15 BUN 22 H Creatinine 1.05 Estim Creat Clear Calc 100.5 Estimated GFR > 60 Random Glucose 158 H Fasting Glucose Calcium 9.1 Magnesium 2.2 Total Bilirubin 0.3 Direct Bilirubin 0.1 AST 19 ALT 41 H Alkaline Phosphatase 102 Total Protein 7.2 Albumin 4.4 Triglycerides Cholesterol LDL Cholesterol, Calc HDL Cholesterol Vitamin B12 Folate TSH Urine Opiates Screen Urine Fentanyl Screen Ur Barbiturates Screen Ur Phencyclidine Scrn Ur Amphetamines Screen U Benzodiazepines Scrn Urine Cocaine Screen U Marijuana (THC) Screen Ethyl Alcohol COVID-19 (APRIL) Negative COVID-19 Clin Com See Note 12/20/22 12/20/22 12/21/22 09:18 09:43 08:18 WBC RBC Hgb Hct MCV MCH MCHC RDW Plt Count MPV Immature Gran % (Auto) Neut % (Auto) Lymph % (Auto) Grady % (Auto) Eos % (Auto) Baso % (Auto) Lymph # (Auto) Grady # (Auto) Eos # (Auto) Baso # (Auto) Abs Immat Gran (auto) Absolute Neuts (auto) Absolute Nucleated RBC Nucleated RBC % (auto) Sodium 141 Potassium 4.8 Chloride 106 Carbon Dioxide 26 Anion Gap 14 BUN 17 H Creatinine 0.95 Estim Creat Clear Calc 111.0 Estimated GFR > 60 Random Glucose Fasting Glucose 104 H Calcium 9.2 Magnesium Total Bilirubin 0.6 Direct Bilirubin AST 17 ALT 34 Alkaline Phosphatase 100 Total Protein 6.9 Albumin 4.2 Triglycerides 100 Cholesterol 186 LDL Cholesterol, Calc 128 HDL Cholesterol 38 Vitamin B12 418 Folate 14.9 TSH 0.99 Urine Opiates Screen Not Detected Urine Fentanyl Screen POSITIVE H Ur Barbiturates Screen Not Detected Ur Phencyclidine Scrn Not Detected Ur Amphetamines Screen Not Detected U Benzodiazepines Scrn Not Detected Urine Cocaine Screen Not Detected U Marijuana (THC) Screen Not Detected Ethyl Alcohol < 10 COVID-19 (APRIL) COVID-19 [employer] 12/21/22 11:09 WBC RBC Hgb Hct MCV MCH MCHC RDW Plt Count MPV Immature Gran % (Auto) Neut % (Auto) Lymph % (Auto) Grady % (Auto) Eos % (Auto) Baso % (Auto) Lymph # (Auto) Grady # (Auto) Eos # (Auto) Baso # (Auto) Abs Immat Gran (auto) Absolute Neuts (auto) Absolute Nucleated RBC Nucleated RBC % (auto) Sodium Potassium Chloride Carbon Dioxide Anion Gap BUN Creatinine Estim Creat Clear Calc Estimated GFR Random Glucose Fasting Glucose Calcium Magnesium Total Bilirubin Direct Bilirubin AST ALT Alkaline Phosphatase Total Protein Albumin Triglycerides Cholesterol LDL Cholesterol, Calc HDL Cholesterol Vitamin B12 Folate TSH Urine Opiates Screen Not Detected Urine Fentanyl Screen POSITIVE H Ur Barbiturates Screen Not Detected Ur Phencyclidine Scrn Not Detected Ur Amphetamines Screen Not Detected U Benzodiazepines Scrn Not Detected Urine Cocaine Screen Not Detected U Marijuana (THC) Screen Not Detected Ethyl Alcohol COVID-19 (APRIL) COVID-19 Clin Com Meds/Allergies Meds Home Medications Medication Instructions Recorded Confirmed Type clonidine HCl 0.1 mg tablet 0.1 mg PO TID 12/20/22 12/20/22 History Narrative: Per David - Amlodipine, Bupropion SR, Clonidine, Lasix, Testosterone Allergies Allergies Allergy/AdvReac Type Severity Reaction Status Date / Time trazodone [TRAZODONE] Allergy Intermediate vomiting Verified 12/10/22 19:22 Mental Status Exam Mental Status Exam Patient Appearance: Appropriate Patient Orientation: Person, Place, Time and Situation Level of Consciousness: Alert Patient Behavior: Appropriate, Talkative and Good Eye Contact Mood Description: Constricted Affect Description: Constricted Patient Cognition Impaired: No Ability to Follow Directions: Good Speech Pattern: Spontaneous Speech Memory Description: Intact and Episodic Impaired Hallucinations: None and Auditory (reports neighborhood kids were harrassing him and others, tapping windows) Delusions: Not Present Thought Process: Distracted Thought Content: positive for Circumstantial, positive for Perseveration and positive for Suicidal Ideation (denies) Depressive Symptoms: Increased Anxiety Abnormal Motor Activity Signs and Symptoms: Restlessness Judgement: Fair Assessment & Plan Assessment & Plan (1) Brief reactive psychosis: Status: Acute Code(s): F23 - Brief psychotic disorder Plan 52 yo male, self presenting to [facility] with SI, paranoia, disorganization in consideration of sleep deprivation and neighborhood children harassing him and other neighbors. Pt felt that he was hearing voices telling him a gang was after hime, they were tapping the window-pt was frightened, unable to sleep, misinterpreted and felt his life was in danger. Reports he has slept since admission, has confirmed with his ex-, also his tenant that the neighborhood kids were doing this and, I took it too seriously . Pt currently on a Section 12B. Plan: Observe, monitor for breakthrough sx, as this is the third admit in 2 months for similiar sx. Collateral contacts Aftercare planning No med changes at this time-of note pt has weekly testosterone injections which may contribute to presenting symptoms. Patient educated on: therapeutic strategies Informed Consent: understands Reason for continued inpatient stay Substantial Risk for: rapid decompensation Statement Statement: I have reviewed the history and physical and performed a pertinent examination on my patient. No changes have occurred unless specified. If the History and Physical was not performed prior to admission, the Hospitalist's service will be consulted for completing the admission physical. Time Spent With Patient Time: Total time managing care of this patient today ____ minutes.
[2022-12-21] MEDS: Acetaminophen 325 MG TABLET 650 MG PO (17:36)
[2022-12-21 21:30] VITALS: BP 135/78; PULSE 89; TEMP 36.2
[2022-12-21] MEDS: cloNIDine HCL 0.1 MG TABLET PO (21:36)
[2022-12-21] MEDS: hydrOXYzine HCL 25 MG TABLET PO (21:37)
[2022-12-22] MEDS: amLODIPine Besylate 5 MG TABLET PO (08:12)
[2022-12-22] MEDS: buPROPion HCl XL 300 MG TAB.ER.24H PO (08:12)
[2022-12-22] MEDS: Furosemide 20 MG TABLET PO (08:12)
[2022-12-22] MEDS: Omeprazole 40 MG CAPSULE.DR PO (08:12)
[2022-12-22 09:00] VITALS: BP 140/91; PULSE 83; RESP 14; TEMP 36.3; O2SAT 98
--- NOTE | 2022-12-22 10:33 | P.CONCA_ITS ---
History of Present Illness History of Present Illness Date of Service: 12/22/22 Chief complaint: SI Paranoia Narrative: This is a cardiology consultation regarding palpitations. Patient is currently hospitalized in for cardiac reasons. He states that he does not have any known cardiac issues like coronary disease or myocardial infarction or cardiomyopathy or in fact any cardiac issues whatsoever. Recently, noticing fluttering type sensation the chest. Hence he is concerned. This can happen randomly. No specific provoking or relieving factors. Some nonspecific discomfort on the right side of the chest that can also happen randomly. He has not seen a chemist physical yet for these symptoms. Review of Systems Review of Systems: Yes all other systems are reviewed and are negative Constitutional: Constitutional: Reports as per HPI and Reports no additional constitutional complaints Eyes: Eyes: Reports as per HPI and Denies no additional eye complaints ENT: Denies system reviewed and no additional complaints, except as documented and Reports as per HPI Cardiovascular: Cardiovascular: Reports as per HPI, Reports no additional cardiovascular complaints, Denies acrocyanosis, Denies cool extremities, Denies chest pain, Denies leg edema, Denies lightheadedness, Reports palpitations and Denies dyspnea Respiratory: Respiratory: Reports as per HPI, Denies no additional respiratory complaints and Denies dyspnea Gastrointestinal: Gastrointestinal: Reports as per HPI and Denies no additional gastrointestinal complaints Genitourinary: Genitourinary: Reports no additional male genitourinary complaints and Reports as per HPI Musculoskeletal: Musculoskeletal: Reports no additional musculoskeletal complaints and Reports as per HPI Integumentary/Breasts: Skin/Breast: Reports system reviewed and no additional complaints, except as docu Neurologic: Reports system reviewed and no additional complaints, except as documented and Reports as per HPI Psychiatric: Psychiatric: Reports no additional psychiatric complaints and Reports as per HPI Endocrine: Endocrine: Reports no additional endocrine complaints, Reports as per HPI and Reports palpitations Hematologic/Lymphatic: Hematologic/Lymphatic: Reports no additional hematologic/lymphatic complaints and Reports as per HPI Allergic/Immunologic: Allergic/Immunologic: Reports no additional allergic/immunologic complaints and Reports as per HPI [facility] Past Medical History Medical History Cocaine use disorder Depression Heartburn Hernia Leg swelling Low testosterone in male Family History Family History Mother Emphysema of lung Cancer Father Cancer Emphysema of lung Substance use disorder Surgical History Surgical History Hx of colonoscopy Social History Social History Household Members: Family Housing: House Do you presently have visiting nurse or other home services: No Unable to assess alcohol history related to: Unknown Alcohol intake: never Patient Tobacco Use Status: Never used Tobacco Tobacco use type: Cigarette Cigarette Packs Per Day: 1 Smoked in Last 30 Days: No e-Cigarette/Vaping Use: Never Used Patient Interested in Nicotine Replacement: No Patient Given Instructions on How to Stop Smoking: No Second Hand Smoke Exposure: Yes Use of substances other than those prescribed or required for medical reasons: No Substance Use Type: Crack/Cocaine, Heroin and Marijuana Last Used Substance: Unknown Currently Displaying Signs/Symptoms of Drug Intoxication Withdrawal: No Other Past Substance Use Problem:: Pt reports that he last had Methodone on 12/13 and has not been on it since. Any prior treatment program specific to substance use: No Have you been hit, kicked, punched, or otherwise hurt by someone within the past year? If so, by whom?: No Spiritual Healthcare Practices: unknown Hindu Healthcare Practices: unknown Advance Directives: No Do you have thoughts of harming others: None Do you have a plan to hurt others: No Plan Recently lost weight without trying: Unsure How much weight loss: Unsure Nutrition Risks: No Nutritional Risk service: No Current occupational status: employed Current occupation: [employer] director Current occupational exposures/hazards: No Sexual orientation: Straight/Heterosexual Cognitive needs: No Hearing needs: No Vision needs: No Meds Allergies Allergy/AdvReac Type Severity Reaction Status Date / Time trazodone [TRAZODONE] Allergy Intermediate vomiting Verified 12/10/22 19:22 Active Medications: Current Medications Acetaminophen (Acetaminophen 325 Mg Tablet) 650 mg PO Q6H PRN PRN Reason: Headache/Pain Mild Scale (1-3) Last Admin: 12/21/22 17:36 Dose: 650 mg Al Hydroxide/Mg Hydroxide (Magnesium Hydrox/Alum Hydrox 30 Ml Oral.Susp) 30 ml PO Q6H PRN PRN Reason: Heartburn/Nausea Amlodipine Besylate (Amlodipine Besylate 5 Mg Tablet) 5 mg PO DAILY [facility]; Protocol Last Admin: 12/22/22 08:12 Dose: 5 mg Bupropion HCl (Bupropion Hcl Xl 300 Mg Tab.Er.24h) 300 mg PO DAILY [facility] Last Admin: 12/22/22 08:12 Dose: 300 mg Clonidine HCl (Clonidine Hcl 0.1 Mg Tablet) 0.1 mg PO TID PRN; Protocol PRN Reason: Anxiety Last Admin: 12/21/22 21:36 Dose: 0.1 mg Furosemide (Furosemide 20 Mg Tablet) 20 mg PO DAILY [facility]; Protocol Last Admin: 12/22/22 08:12 Dose: 20 mg Hydroxyzine HCl (Hydroxyzine Hcl 25 Mg Tablet) 25 mg PO Q6H PRN PRN Reason: Anxiety Last Admin: 12/21/22 21:37 Dose: 25 mg Lactulose (Lactulose 20 Gm/30 Ml Solution) 10 gm PO BEDTIME PRN PRN Reason: for constipation Magnesium Hydroxide (Milk Of Magnesia 30 Ml Oral.Susp) 30 ml PO DAILY PRN PRN Reason: Constipation Omeprazole (Omeprazole 40 Mg Capsule.Dr) 40 mg PO DAILY [facility] Last Admin: 12/22/22 08:12 Dose: 40 mg Home Medications Medication Instructions Recorded Confirmed Last Taken Type clonidine HCl 0.1 mg tablet 0.1 mg PO TID 12/20/22 12/20/22 Unknown History Physical Exam Vital Signs: Vital Signs: Last Vital Signs Temp 97.2 F 12/21/22 21:30 Pulse 89 12/21/22 21:30 Resp 17 12/21/22 09:00 BP 135/78 12/21/22 21:30 Pulse Ox 98 12/21/22 09:00 O2 Del Method Room Air 12/21/22 09:00 BMI result Body Mass Index 31.6 Const: General: comfortable and no acute distress Orientation/consciousness: patient oriented x3 HEENT: Other: Unremarkable Head: Yes normal to inspection Neck: Neck: Yes normal visual inspection Chest: Chest palpation & inspection: normal inspection of the chest Resp: Auscultation: clear to auscultation bilaterally Cardio: Palpation: normal PMI Heart sounds: S1 normal heart sound present, S2 normal heart sound present, no gallops, no murmurs and no rubs GI: Palpation (GI): Soft to palpation Back/Spine/Pelvis: Other: unremarkable Skin: General skin exam: no rashes or lesions noted Neuro: General: patient oriented x3 Extrem: General: Yes normal to inspection Psych: Mental Status: mental status grossly normal Objective Labs and Meds 12/20/22 09:18 12/21/22 08:18 Lab results: Laboratory Results - last 24 hr 12/21/22 11:09 Urine Opiates Screen Not Detected Urine Fentanyl Screen POSITIVE H Ur Barbiturates Screen Not Detected Ur Phencyclidine Scrn Not Detected Ur Amphetamines Screen Not Detected U Benzodiazepines Scrn Not Detected Urine Cocaine Screen Not Detected U Marijuana (THC) Screen Not Detected ECG Interpretation: EKG shows sinus rhythm at 0 9/Min; cannot exclude old anterior infarct but could be from body habitus. Normal [place] and corrected QT. Assessment and Plan (1) Heart palpitations: Status: Inactive Plan Baseline EKG is unremarkable. He could have periods of supraventricular ventricular ectopy contributing palpitations. Doubt any sustained arrhythmias. Once he is discharged from psychiatric unit, we can arrange an echocardiogram and Holter monitor for further evaluation. Discussed about this with the patie nt and he is agreeable. Time Spent With Patient Time: Total time managing care of this patient today ____ minutes. Procedures Date of Service Date of Service: 12/22/22
--- NOTE | 2022-12-22 17:13 | PM.PSYDC ---
DS: Providers Provider Date of Service: 12/22/22 Date of admission: 12/20/22 22:28 Date of discharge: 12/22/22 Primary care physician: Angel Feng MD Admitting clinician: Estella Desai Attending physician on admission: Olu Paulino Consults: 12/21/22 12:03 Consult to Cardiology Routine Consulting Provider: [facility] Cardi[facility] Reason for consultation: CP-intermittent, ? need for holter monitor Has provider been notified: No Attending physician on discharge: Olu Paulino Discharging clinician: Estella Desai DS: Diagnosis Discharge Diagnosis (1) Brief reactive psychosis: Status: Acute (2) Heart palpitations: Status: Inactive DS: Medications Discharge Medications Home Medications: Home Medications Medication Instructions Recorded Confirmed clonidine HCl 0.1 mg tablet 0.1 mg PO TID 12/20/22 12/20/22 Previous Rx's Medication Instructions Recorded syringe with needle, safety 3 mL #100 ea 03/02/22 22 gauge x 1 1/2 omeprazole 40 mg capsule,delayed 40 mg PO DAILY 30 days #30 caps 05/25/22 release bisacodyl 5 mg tablet,delayed 10 mg PO ONCE colonoscopy prep 1 06/14/22 release (Dulcolax (bisacodyl)) day #2 tabs polyethylene glycol 3350 17 238 g PO ONCE 1 day #238 grams 06/14/22 gram/dose oral powder (Miralax) lactulose 10 gram/15 mL oral 15 ml PO BEDTIME PRN for 06/16/22 solution constipation #1,419 mL carbamide peroxide 6.5 % ear drops 5 drp otic (ear) right DAILY 4 08/16/22 (Debrox) days #15 mL fluticasone propionate 50 1 spray intranasal Q12H 30 days 08/16/22 mcg/actuation nasal #16 grams spray,suspension (Flonase Allergy Relief) bupropion HCl 150 mg tablet,12 hr 150 mg PO BID 30 days #60 tabs 09/04/22 sustained-release furosemide 40 mg tablet 20 mg PO DAILY 30 days #15 tabs 10/26/22 amlodipine 5 mg tablet 5 mg PO DAILY 30 days #30 tabs 11/13/22 testosterone cypionate 200 mg/mL 100 mg (0.5 mL) IM QWEEK 28 days 11/14/22 intramuscular oil #2 mL sildenafil 100 mg tablet 100 mg PO DAILY PRN sexual 11/24/22 activity 30 days #4 tabs Mental Status Exam Mental Status Exam Patient Appearance: Appropriate Patient Orientation: Person, Place, Time and Situation Level of Consciousness: Alert Patient Behavior: Appropriate, Talkative and Good Eye Contact Mood Description: Constricted Affect Description: Constricted Patient Cognition Impaired: No Ability to Follow Directions: Good Speech Pattern: Spontaneous Speech Memory Description: Intact and Episodic Impaired Hallucinations: None and Auditory (reports neighborhood kids were harrassing him and others, tapping windows) Delusions: Not Present Thought Process: Distracted Thought Content: positive for Circumstantial, positive for Perseveration and positive for Suicidal Ideation (denies) Depressive Symptoms: Increased Anxiety Abnormal Motor Activity Signs and Symptoms: Restlessness Judgement: Fair Data Data Completed and Pending Completed studies during hospitalization [Text1]: 12/20/22 12/20/22 12/20/22 09:18 09:18 09:18 WBC 10.8 RBC 5.43 Hgb 16.2 Hct 47.4 MCV 87.3 MCH 29.8 MCHC 34.2 RDW 12.7 Plt Count 323 MPV 9.9 Immature Gran % (Auto) 0.6 H Neut % (Auto) 73.8 H Lymph % (Auto) 16.7 L [place] % (Auto) 7.9 Eos % (Auto) 0.6 Baso % (Auto) 0.4 Lymph # (Auto) 1.8 [place] # (Auto) 0.9 Eos # (Auto) 0.1 Baso # (Auto) 0.0 Abs Immat Gran (auto) 0.06 H Absolute Neuts (auto) 8.0 Absolute Nucleated RBC 0.000 Nucleated RBC % (auto) 0.0 Sodium 138 Potassium 4.5 Chloride 105 Carbon Dioxide 23 Anion Gap 15 BUN 22 H Creatinine 1.05 Estim Creat Clear Calc 100.5 Estimated GFR > 60 Random Glucose 158 H Fasting Glucose Calcium 9.1 Magnesium 2.2 Total Bilirubin 0.3 Direct Bilirubin 0.1 AST 19 ALT 41 H Alkaline Phosphatase 102 Total Protein 7.2 Albumin 4.4 Triglycerides Cholesterol LDL Cholesterol, Calc HDL Cholesterol Vitamin B12 Folate TSH Urine Opiates Screen Urine Fentanyl Screen Ur Barbiturates Screen Ur Phencyclidine Scrn Ur Amphetamines Screen U Benzodiazepines Scrn Urine Cocaine Screen U Marijuana (THC) Screen Ethyl Alcohol COVID-19 (APRIL) Negative COVID-[employer] Com See Note 12/20/22 12/20/22 12/21/22 09:18 09:43 08:18 WBC RBC Hgb Hct MCV MCH MCHC RDW Plt Count MPV Immature Gran % (Auto) Neut % (Auto) Lymph % (Auto) [place] % (Auto) Eos % (Auto) Baso % (Auto) Lymph # (Auto) [place] # (Auto) Eos # (Auto) Baso # (Auto) Abs Immat Gran (auto) Absolute Neuts (auto) Absolute Nucleated RBC Nucleated RBC % (auto) Sodium 141 Potassium 4.8 Chloride 106 Carbon Dioxide 26 Anion Gap 14 BUN 17 H Creatinine 0.95 Estim Creat Clear Calc 111.0 Estimated GFR > 60 Random Glucose Fasting Glucose 104 H Calcium 9.2 Magnesium Total Bilirubin 0.6 Direct Bilirubin AST 17 ALT 34 Alkaline Phosphatase 100 Total Protein 6.9 Albumin 4.2 Triglycerides 100 Cholesterol 186 LDL Cholesterol, Calc 128 HDL Cholesterol 38 Vitamin B12 418 Folate 14.9 TSH 0.99 Urine Opiates Screen Not Detected Urine Fentanyl Screen POSITIVE H Ur Barbiturates Screen Not Detected Ur Phencyclidine Scrn Not Detected Ur Amphetamines Screen Not Detected U Benzodiazepines Scrn Not Detected Urine Cocaine Screen Not Detected U Marijuana (THC) Screen Not Detected Ethyl Alcohol < 10 COVID-19 (APRIL) COVID-[place] 12/21/22 11:09 WBC RBC Hgb Hct MCV MCH MCHC RDW Plt Count MPV Immature Gran % (Auto) Neut % (Auto) Lymph % (Auto) [place] % (Auto) Eos % (Auto) Baso % (Auto) Lymph # (Auto) [place] # (Auto) Eos # (Auto) Baso # (Auto) Abs Immat Gran (auto) Absolute Neuts (auto) Absolute Nucleated RBC Nucleated RBC % (auto) Sodium Potassium Chloride Carbon Dioxide Anion Gap BUN Creatinine Estim Creat Clear Calc Estimated GFR Random Glucose Fasting Glucose Calcium Magnesium Total Bilirubin Direct Bilirubin AST ALT Alkaline Phosphatase Total Protein Albumin Triglycerides Cholesterol LDL Cholesterol, Calc HDL Cholesterol Vitamin B12 Folate TSH Urine Opiates Screen Not Detected Urine Fentanyl Screen POSITIVE H Ur Barbiturates Screen Not Detected Ur Phencyclidine Scrn Not Detected Ur Amphetamines Screen Not Detected U Benzodiazepines Scrn Not Detected Urine Cocaine Screen Not Detected U Marijuana (THC) Screen Not Detected Ethyl Alcohol COVID-19 (APRIL) COVIDE-House DS: Summary Hospital Course Hospital Course: Admission to adult psychiatry for exacerbation of sx of insomnia, brief reactive psychosis with SI and disorganization, paranoia and fear. Pt reports he was discharged this week from [facility] after a seven day admit. Upon return home, he was not able to sleep, thought he heard voices of neighborhood children outside and tapping on the windows (per ex- these were real-neighborhood children have been pranking neighbors). With sleep deprivation, pt drove himself to ER for eval. 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 Also reported he was told he is in need of cardiac eval due to abnormalities found in ER. Medications were continued, cardiology was consulted which is much appreciated and pt is scheduled for further testing on 01/03/23. Pt was discharged asymptomatic to his home. He will call and/or return if needed. Education was provided that symptoms may be side effects from regime or IM testosterone he is currently taking. Time spent discussing smoking cessation with patient: 3 to 10 minutes Status at Discharge Functional status at discharge: independent ambulation Overall status at discharge: patient is progressing back to baseline Time Spent with Patient Time attestation: Total time managing care of this patient today ____ minutes. Time spent: Greater than 30 minutes Discharge Plan Discharge Anticipated Discharge Date/Time: 12/22/22 17:00 Patient Disposition: Home, Self-Care Discharge Diagnosis: Brief Reactive Psychosis Referrals: Angel Feng MD [Primary Care Provider] - 1 Week Discharge Medications: Continued (DME) syringe with needle, safety 3 mL 22 gauge x 1 1/2 syringe See Rx Instructions .ROUTE DIRECTED Qty: 100 11RF Rx Instructions: As directed lactulose 10 gram/15 mL solution 15 ml PO BEDTIME PRN (Reason: for constipation) Qty: 1419 0RF bupropion HCl 150 mg tablet sustained-release 12 hr 150 mg PO BID 30 Days Qty: 60 2RF furosemide 40 mg tablet 20 mg PO DAILY 30 Days Qty: 15 2RF amlodipine 5 mg tablet 5 mg PO DAILY 30 Days Qty: 30 2RF testosterone cypionate 200 mg/mL oil 100 mg IM QWEEK 28 Days Qty: 2 1RF sildenafil 100 mg tablet 100 mg PO DAILY PRN (Reason: sexual activity) 30 Days Qty: 4 2RF Rx Instructions: administer 30 minutes to 4 hours before activity clonidine HCl 0.1 mg tablet 0.1 mg PO TID omeprazole 40 mg capsule,delayed release(DR/EC) 40 mg PO DAILY 30 Days Qty: 30 2RF Debrox 6.5 % drops 5 drp otic (ear) right DAILY 4 Days Qty: 15 0RF fluticasone propionate [Flonase Allergy Relief] 50 mcg/actuation spray,suspension 1 spray intranasal Q12H 30 Days Qty: 16 2RF Rx Instructions: administer into each nostril bisacodyl [Dulcolax (bisacodyl)] 5 mg tablet,delayed release (DR/EC) 10 mg PO ONCE 1 Days Qty: 2 0RF Rx Instructions: Take 2 tablets by mouth at 12:00pm the day before your procedure. polyethylene glycol 3350 [Miralax] 17 gram/dose powder 238 g PO ONCE 1 Days Qty: 238 0RF Rx Instructions: Take as directed by mouth the day before your procedure. No Action aripiprazole 2 mg tablet 2 mg PO BEDTIME 30 Days Qty: 30 1RF Discharge Orders: Discharge Order (Routine); Ordered 12/22/22 Ordered By: Estella Desai Diet: Advance to usual diet Activity on Discharge: As tolerated Stand Alone Forms: Patient Portal Discharge page, Community Support Care Plan Goals: Mood and Behavioral Stabilization Health Concerns: Mood and Behavioral Stabilization Plan of Treatment: Follow up with provider appointments [facility], January 03, 2023 7:45am Echocardiogram [facility], January 03, 2023 10:45 am Holter Monitor Take medications as directed Assessment: non suicidal, non homicidal, non manic, non psychotic Discharge Date/Time: 12/22/22 16:30
== END 2022-12-22 16:30 | disposition home or self-care (01) | DRG 751 ==
LOC: HO.ED 11:25 → HO.PM5 22:50
PROVIDERS: Physician Assistant; Admitting Provider Psychiatry & Neurology Psychiatry; Emergency Provider Emergency Medicine Emergency Medical Services; PCP Family Medicine; Visit Provider Clinical Nurse Specialist Psychiatric/Mental Health, Adult
DX: F23 Brief psychotic disorder (principal); R45.851 Suicidal ideations; F32.A Depression, unspecified; F14.10 Cocaine abuse, uncomplicated; F11.21 Opioid dependence, in remission; I49.3 Ventricular premature depolarization; I10 Essential (primary) hypertension; F41.9 Anxiety disorder, unspecified; Z20.822 Contact with and (suspected) exposure to COVID-19; Z88.8 Allergy status to other drugs, medicaments and biological substances; Z79.51 Long term (current) use of inhaled steroids; Z79.899 Other long term (current) drug therapy
CPT/HCPCS: 36415; 80048; 80053; 80061; 80076; 80307; 82077; 82607; 82746; 83735; 84443; 85025; 87635; 93005; 99285; S9485

== ENCOUNTER 2023-01-11 11:11 | Inpatient (IN) | payer OTHER, MEDICAID, SELFPAY ==
[2023-01-11] VITALS (32 sets, daily range): BP systolic 0–149; BP diastolic 0–107; PULSE 0–128; RESP 14–42; TEMP 32–37.1; O2SAT 80–100
--- NOTE | ~2023-01-11 | XR_ITS ---
EXAMINATION: XR CHEST CLINICAL INFORMATION: Intubation. COMPARISON: Chest radiograph earlier today. TECHNIQUE: Frontal view of the chest was obtained. FINDINGS: Endotracheal tube terminates at 3.8 cm above the khadijah. An enteric tube courses into the abdomen and terminates outside of the field of view. Stable appearance of the cardiomediastinal silhouette. Focal haziness in the left lower lobe is only visible in one of the views, likely artifactual. No pneumothorax. No pleural effusion. Clear right lung. XR/XR chest 1V IMPRESSION: 1. Endotracheal tube terminates at 3.8 cm above the khadijah. 2. Focal haziness in the left lower lobe is only visible in one of the views, likely artifactual. Attention on follow-up is recommended.
--- NOTE | ~2023-01-11 | XR_ITS ---
EXAMINATION: XR CHEST CLINICAL INFORMATION: Endotracheal tube and line. COMPARISON: Chest radiograph 01/11/2023 at 12:32 PM. TECHNIQUE: Frontal view of the chest was obtained. FINDINGS: The endotracheal tube terminates at 4.5 cm above the khadijah. A left IJ CVC tip terminates at the level of the brachiocephalic junction/upper SVC, similar to prior. An enteric tube courses into the abdomen with the tip at the level of the gastric body. Stable prominence of the cardiomediastinal silhouette. Similar to slightly increased hazy and streaky opacities in the left lower lobe. No pleural effusion. No pneumothorax. No acute osseous abnormalities. XR/XR chest 1V IMPRESSION: 1. The endotracheal tube terminates at 4.5 cm above the khadijah. 2. Unchanged positioning of left IJ CVC. 3. Similar to slightly increased opacities in the left lower lobe that could represent aspiration or atelectasis. 4. No pleural effusion or pneumothorax.
--- NOTE | ~2023-01-11 | XR_ITS ---
EXAMINATION: XR CHEST CLINICAL INFORMATION: Line placement COMPARISON: 01/11/2023 TECHNIQUE: Frontal view of the chest was obtained. FINDINGS: ET tube tip overlies 5 cm above the khadijah. NG tube overlying left upper quadrant. There is a catheter entering from the left. The tip overlies The the fifth thoracic vertebrae centrally. There is no pneumothorax. There is no effusion. Once again some areas of opacity in the lung wyatt most noted at the bases left greater than right. No significant increase. XR/XR chest 1V IMPRESSION: Catheter entering from the left terminates over the fifth thoracic vertebrae centrally. Correlation needs to be made clinically. I cannot exclude that this is arterial, versus venous or other ectopic placement. There is no pneumothorax. Other findings are as described above This critical result was discussed with Dr Solorzano at 1:57 PM on 01/11/2023 and it was ascertained that the content and urgency of the report was understood at the time of direct communication.
[2023-01-11] MEDS: Midazolam HCl/PF 2 MG/2 ML VIAL IVPUSH (11:29)
--- NOTE | 2023-01-11 11:31 | ECG_ITS ---
Test Reason : cardiac arrest Blood Pressure : / mmHG Vent. Rate : 083 BPM Atrial Rate : 083 BPM P-R Int : 258 ms QRS Dur : 102 ms QT Int : 354 ms P-R-T Axes : 054 072 044 degrees QTc Int : 415 ms Sinus rhythm with 1st degree A-V block Otherwise normal ECG When compared with ECG of 20-DEC-2022 10:58, [place] interval has increased Nonspecific T wave abnormality no longer evident in Lateral leads Referred By: Jeramy Monterroso Electronically Signed By:XAVIER ACUÑA
[2023-01-11 11:41] LABS: VBG Base Excess -18.2 mmol/L; VBG HCO3 11 mmol/L (22-26); VBG pCO2 40 mmHg; VBG pH 7.06 (7.32-7.43); VBG pO2 127 mmHg
[2023-01-11 11:42] LABS: Venous Blood Gas Refer to POC result
[2023-01-11 11:46] LABS: Hematocrit 52.5 % (42.0-52.0); Hemoglobin 17.1 g/dl (14.0-18.0); Mean Corpuscular HGB Conc 32.6 g/dl (31.0-36.0); Mean Corpuscular Volume 92.1 fL (80.0-98.0); Mean Platelet Volume 10.4 fL (9.4-12.4); NRBC Pct Auto 0.5 /100WBC (0.0-0.2); Platelet Count 229 X10*3/uL (160-400); Red Cell Distribution Width 13.3 % (11.0-16.0); White Blood Count 23.8 X10*3/uL (4.8-10.8)
[2023-01-11] MEDS: propofoL 1,000 MG/100 ML VIAL 12.59 MG IVCONT (11:49)
[2023-01-11] MEDS: propofoL 200 MG/20 ML VIAL 100 MG IVPUSH (11:52)
[2023-01-11] MEDS: 0.9 % Sodium Chloride 1,000 ML 999 ML IV (11:54)
--- NOTE | 2023-01-11 11:58 | PC.NURSE ---
bp 193/139
--- NOTE | 2023-01-11 12:00 | PC.NURSE ---
at bedside attempting a ventral line in the left carotid og in place and draining well of dark brown.reddish consistencies vent setting ac 16/500 and 60% sating at 100%
--- NOTE | 2023-01-11 12:04 | PC.NURSE ---
bp 67/33, propfal dripped on pause and norephinerphrine drip started at 0.02mcg/kg/min bp 67/24
[2023-01-11] MEDS: Pantoprazole Sodium 40 MG/10 ML VIAL 80 MG IVPUSH (12:05)
--- NOTE | 2023-01-11 12:05 | PC.NURSE ---
80mg of pantoprazole give through the io
[2023-01-11] MEDS: Norepinephrine Bitartrate/D5W 8 MG/250 ML PLAST..BAG 3.92 MG IV (12:07)
--- NOTE | 2023-01-11 12:22 | PC.NURSE ---
norephinephrine increased from 0.02mcg to 0.07mcg [facility] bp 70/31
--- NOTE | 2023-01-11 12:29 | ED_ITS ---
HPI - General Adult General Chief complaint: Cardiac Arrest/CPR Stated complaint: CARDIAC ARREST S/P NARCOTIC OD PER EMS Time Seen by Provider: 01/11/23 11:18 Source: EMS Mode of arrival: EMS Limitations: altered mental status and physical limitation History of Present Illness HPI narrative: 52-year-old male with history of polysubstance abuse presents and cardiac arrest. Patient was at home and became unresponsive. EMS was contacted. Blood sugar was not obtained at that time. CPR was started by police following by EMS. He was given epinephrine and sodium bicarbonate on route. He was placed on a Ryan device. An LMA was placed as well. Upon arrival, CPR was continued. He had organized activity but no pulse. A secure airway was placed, patient was given additional doses of epinephrine x2, sodium bicarbonate x2, 0.08 mg of Narcan, dextrose 50 following a blood sugar of 43. Patient eventually obtained ROSC. Related Data Home Medications Medication Instructions Recorded Confirmed clonidine HCl 0.1 mg tablet 0.1 mg PO TID 12/20/22 01/11/23 Previous Rx's Medication Instructions Recorded syringe with needle, safety 3 mL #100 ea 03/02/22 22 gauge x 1 1/2 omeprazole 40 mg capsule,delayed 40 mg PO DAILY 30 days #30 caps 05/25/22 release lactulose 10 gram/15 mL oral 15 ml PO BEDTIME PRN for 06/16/22 solution constipation #1,419 mL bupropion HCl 150 mg tablet,12 hr 150 mg PO BID 30 days #60 tabs 09/04/22 sustained-release furosemide 40 mg tablet 20 mg PO DAILY 30 days #15 tabs 10/26/22 amlodipine 5 mg tablet 5 mg PO DAILY 30 days #30 tabs 11/13/22 testosterone cypionate 200 mg/mL 100 mg (0.5 mL) IM QWEEK 28 days 11/14/22 intramuscular oil #2 mL sildenafil 100 mg tablet 100 mg PO DAILY PRN sexual 11/24/22 activity 30 days #4 tabs aripiprazole 2 mg tablet 2 mg PO BEDTIME 30 days #30 tabs 01/02/23 Allergies Allergy/AdvReac Type Severity Reaction Status Date / Time trazodone [TRAZODONE] Allergy Intermediate vomiting Verified 01/02/23 15:54 [facility] Past Medical History Medical History Cocaine use disorder Depression Heartburn Hernia Leg swelling Low testosterone in male Surgical History Hx of colonoscopy Family History Family History Mother Emphysema of lung Cancer Father Cancer Emphysema of lung Substance use disorder Social History Social History Household Members: Family Housing: House Do you presently have visiting nurse or other home services: No Unable to assess alcohol history related to: Unknown Alcohol intake: never Patient Tobacco Use Status: Never used Tobacco Tobacco use type: Cigarette Cigarette Packs Per Day: 1 e-Cigarette/Vaping Use: Never Used Second Hand Smoke Exposure: Yes Substance Use Type: Crack/Cocaine, Heroin and Marijuana Advance Directives: No service: No Current occupational status: employed 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 Current occupational exposures/hazards: No Sexual orientation: Straight/Heterosexual Cognitive needs: No Hearing needs: No Vision needs: No Physical Exam ED Vital Signs: Vital Signs - 24 hr 01/11/23 11:49 01/11/23 11:52 01/11/23 11:50 Pulse Rate 83 78 Respiratory Rate 22 H 22 H Blood Pressure 149/86 H 107/86 Fraction of Inspired Oxygen 60 01/11/23 12:19 01/11/23 12:07 Pulse Rate 79 77 Respiratory Rate 25 H Blood Pressure 70/31 L 70/31 L Fraction of Inspired Oxygen GEN: Well developed, cardiac and pulmonary arrest, oral airway in place, Ryan device attached with compressions HEENT: Normocephalic, atraumatic, normal external ears, nose appears normal, no oropharyngeal edema or exudates Eyes: Normal to appearance Neck: Supple Respiratory: Breath sounds absent bilaterally Cardiovascular: No cardiac activity auscultated Abdomen: Soft, nontender, nondistended, no guarding, no rebound Extremities: Peripheral sign also this with with livedo reticularis Neurologic: No spontaneous neurologic activity Skin: Livedo reticularis Course Course Course Narrative: 52-year-old male with history of polysubstance abuse presents in cardiopulmonary arrest. CPR was initiated in the field, oral airways placed, IO was placed in left lower extremity. He was placed on a Ryan device on transport. Patient was initially asystolic and ultimately be developed PE a. Prior to arrival, patient received epinephrine and sodium bicarbonate through the IO line. Upon arrival, CPR was continued. Was given immediate dose of D50, epinephrine, sodium bicarbonate. After 3 minutes, a rhythm was assessed. He was noted to be and what appeared to be a sinus rhythm with palpable pulses in the femoral area. Slowly but surely, patient has livedo reticularis and peripheral cyanosis improved. Patient then developed some spontaneous movements. He had no posturing. Bedside echocardiogram revealed good contractility. During CPR, a more secure airway was placed. Patient was placed on propofol fall and vecuronium for sedation. A central line was also placed. Generalist is aware of patient's impending admission. Initial lab work did demonstrate a significant acidemia. A bicarbonate drip has been ordered. Patient is pending a chest x-ray for confirmation of IJ placement. Initial x-ray revealed ET tube in place with an oral gastric tube also placed. The ET tube was approximately 3-4 cm above the khadijah. Reevaluation(s) Reevaluation #1: Patient has a significantly elevated white blood cell count. Will order blood cultures and give 1 dose of Zosyn prophylactically. His pH is 7.0. I have already provided patient with a total of 3 doses of sodium bicarbonate. I will start the patient on a D5 sodium bicarbonate drip. Time: 12:49 Reevaluation #2: Patient's blood pressure continues to be low. Patient is almost maxed out on norepinephrine. Will start vasopressin at 0.04 units. Patient also had what possibly could be an upper GI bleed. I have started Protonix 80 mg IV bolus as well. Patient has been admitted to the ICU. Time: 13:26 Medications Administered Generic Name Dose Route Start Last Admin Trade Name Freq PRN Reason Stop Dose Admin Propofol 1,000 mg in 100 mls @ 0 mls/hr 01/11/23 11:45 01/11/23 11:49 Diprivan IVCONT 20 mcg/kg/min .Q0M LAUREN 12.59 mls/hr Administration Protocol Per Protocol Norepinephrine Bitartrate 8 mg in 250 mls @ 0 mls/hr 01/11/23 12:30 01/11/23 13:23 Levophed IV 1 mcg/kg/min .Q0M LAUREN 196.13 mls/hr Titration Protocol Per Protocol Discontinued Medications Generic Name Dose Route Start Last Admin Trade Name Freq PRN Reason Stop Dose Admin Fentanyl 100 mcg 01/11/23 12:44 01/11/23 12:49 Fentanyl Citrate/Pf 100 Mcg/2 Ml Vial IVPUSH 01/11/23 12:45 100 mcg ONCE ONE Administration Protocol Sodium Chloride 1,000 mls @ 999 mls/hr 01/11/23 11:45 01/11/23 13:08 Ns IV 01/11/23 12:45 Infused .Q1H1M LAUREN Infusion Piperacillin Sod/Tazobactam 50 mls @ 100 mls/hr 01/11/23 12:39 01/11/23 13:01 Sod 3.375 gm/ Sodium Chloride IV 01/11/23 13:08 100 mls/hr ONCE ONE Administration Midazolam HCl 2 mg 01/11/23 11:34 01/11/23 11:29 Midazolam Hcl/Pf 2 Mg/2 Ml Vial IVPUSH 01/11/23 11:35 2 mg ONCE ONE Administration Propofol 100 mg 01/11/23 11:33 01/11/23 11:52 Propofol 200 Mg/20 Ml Vial IVPUSH 01/11/23 11:34 100 mg ONCE ONE Administration Vecuronium [place] 1 mg 01/11/23 11:39 01/11/23 11:50 Vecuronium [place] 10 Mg Vial IVPUSH 01/11/23 11:40 1 mg NOW STA Administration Procedures Procedure Narrative Procedure Narrative: CPR patient presented in acute cardiopulmonary arrest, CPR and ALS protocol were initiated and continued in the emergency department. Patient received chest compressions by Ryan device. CPR medications were administered including D50, epinephrine and sodium bicarbonate. Spontaneous return of circulation was achieved. Central Line Placement Left IJ: Time Out Performed: Yes Patient Placed on Monitor/Pulse Ox: Yes MD Prep: mask, gown and gloves Central Line Prep: Chlorhexidine scrub and sterile drapes applied Local Anesthetic: lidocaine 1% Amount of anesthesia used (mL): 4 Ultrasound Used for Placement: Yes Central Line Lumen Inserted: triple Post Procedure: sutured in place, good blood return, all ports aspirated, flushed, capped and sterile dressing applied Post Procedure X-Ray: tip of catheter in good position and no pneumothorax seen Patient Tolerated Procedure: well Complications: none Intubation Time out performed: No sedative: none Laryngoscope: other ([place] scope) ET Tube Size: 7.5 ET Tube Uncuffed: No Tube Secured Depth (cm): 23 Tube Secured Location: lips Tube Placement Confirmation: visualized tube passing through cords, equal breath sounds bilaterally, no breath sounds over epigastrium and confirmation by capnometry Patient Tolerated Procedure: well Intubation Complications: none Medical Decision Making Medical Decision Making [facility] [place] Narrative: 52-year-old male presents in cardiopulmonary arrest. Please see coarse further information. Patient may have overdosed on medications. Receive Narcan, epinephrine sodium bicarbonate prior to arrival. And CPR was initiated in the field. Patient an oral airway placed as well. Upon arrival, patient was PE a an apneic. There are no good breath sounds bilaterally and an ET tube was subsequently placed. Patient was given another dose of epinephrine, sodium bicarbonate D50. Patient then obtained return of spontaneous circulation. Patient has had intermittent low blood pressure readings, supported with IV fluids, intermittent norepinephrine. Patient is currently sedated on propofol. He did receive a dose of vecuronium. At this point I will also try dose of fentanyl as patient may be withdrawing from his polysubstance abuse. Intensive care unit is aware. Differential Diagnosis Differential Diagnoses: The differential diagnosis associated with the presentation includes (Overdose, cardiac arrest, myocardial infarction, electrolyte abnormality, anemia, sepsis) Admission/Observation Consideration of admission/observation: Escalation of care including admission/observation considered Consult Healthcare Provider Management of the patient was discussed with: Blanket Binder (Generalist) Lab Data [facility] [place] Lab Attestation statement: I reviewed the patient's lab results. 01/11/23 11:26 01/11/23 Unknown Labs: Lab Results 01/11/23 01/11/23 01/11/23 Range/Units 11:16 11:21 11:26 WBC (4.8-10.8) X10*3/uL RBC (4.60-5.80) X10*6/uL Hgb (14.0-18.0) g/dl Hct (42.0-52.0) % MCV (80.0-98.0) fL MCH (27.0-33.0) pg MCHC (31.0-36.0) g/dl RDW (11.0-16.0) % Plt Count (160-400) X10*3/uL MPV (9.4-12.4) fL Immature Gran % (Auto) Neut % (Auto) Lymph % (Auto) [place] % (Auto) Eos % (Auto) Baso % (Auto) Lymph # (Auto) [place] # (Auto) Eos # (Auto) Baso # (Auto) Abs Immat Gran (auto) Absolute Neuts (auto) Absolute Nucleated RBC (0.0-0.012) X10*3/uL Nucleated RBC % (auto) (0.0-0.2) /100WBC Neutrophils % (Manual) (45-73) % Band Neutrophils % (3-5) % Lymphocytes % (Manual) (20-40) % Myelocytes % % Promyelocytes % % Abs Neuts (Manual) (2.0-8.3) X10*3/uL Lymphocytes # (Manual) (1.2-4.9) X10*3/uL Myelocytes # X10*/uL Promyelocytes # X10*3/uL Nucleated RBCs (0-0) /100WBC Platelet Estimate (NORMAL) Large Platelets Plt Morphology Comment RBC Morphology [place] Cells /OIF VBG pH (7.32-7.43) VBG pCO2 mmHg VBG pO2 mmHg VBG HCO3 (22-26) mmol/L VBG O2 Saturation % VBG Base Excess mmol/L Sodium Cancelled Potassium Cancelled Chloride Cancelled Carbon Dioxide Cancelled Anion Gap Cancelled BUN Cancelled Creatinine Cancelled Estim Creat Clear Calc Cancelled Estimated GFR Cancelled POC Glucose 47 L* 113 (60-115) mg/dL Random Glucose Cancelled Calcium Cancelled 01/11/23 01/11/23 Range/Units 11:26 11:30 WBC 23.8 H (4.8-10.8) X10*3/uL RBC 5.70 (4.60-5.80) X10*6/uL Hgb 17.1 (14.0-18.0) g/dl Hct 52.5 H (42.0-52.0) % MCV 92.1 (80.0-98.0) fL MCH 30.0 (27.0-33.0) pg MCHC 32.6 (31.0-36.0) g/dl RDW 13.3 (11.0-16.0) % Plt Count 229 D (160-400) X10*3/uL MPV 10.4 (9.4-12.4) fL Immature Gran % (Auto) Cancelled Neut % (Auto) Cancelled Lymph % (Auto) Cancelled [place] % (Auto) Cancelled Eos % (Auto) Cancelled Baso % (Auto) Cancelled Lymph # (Auto) Cancelled [place] # (Auto) Cancelled Eos # (Auto) Cancelled Baso # (Auto) Cancelled Abs Immat Gran (auto) Cancelled Absolute Neuts (auto) Cancelled Absolute Nucleated RBC 0.120 H (0.0-0.012) X10*3/uL Nucleated RBC % (auto) 0.5 H (0.0-0.2) /100WBC Neutrophils % (Manual) 84 H (45-73) % Band Neutrophils % 7 H (3-5) % Lymphocytes % (Manual) 7 L (20-40) % Myelocytes % 1 % Promyelocytes % 1 % Abs Neuts (Manual) 21.7 H (2.0-8.3) X10*3/uL Lymphocytes # (Manual) 1.7 (1.2-4.9) X10*3/uL Myelocytes # 0.2 X10*/uL Promyelocytes # 0.2 X10*3/uL Nucleated RBCs 1 H (0-0) /100WBC Platelet Estimate NORMAL (NORMAL) Large Platelets PRESENT Plt Morphology Comment NOTED RBC Morphology NOTED [place] Cells 1+ (0-2) /OIF VBG pH 7.06 L* (7.32-7.43) VBG pCO2 40 mmHg VBG pO2 127 mmHg VBG HCO3 11 L (22-26) mmol/L VBG O2 Saturation 99.0 % VBG Base Excess -18.2 mmol/L Sodium Potassium Chloride Carbon Dioxide Anion Gap BUN Creatinine Estim Creat Clear Calc Estimated GFR POC Glucose (60-115) mg/dL Random Glucose Calcium Independent Interpretation I performed an independent interpretation of an: EKG (Normal sinus rhythm, first-degree AV block, heart rate 83, nonspecific T-wave changes, no acute ST elevations or depressions), Rhythm Strip (Sinus rhythm) and Plain X-Ray (Initial chest x-ray identifies an OG tube going past the diaphragm, ET tube approximately 3-4 cm above the khadijah. Subsequent chest x-ray after placement of IJ shows appropriately placed internal jugular on the left side approximately 2-3 cm above the cavoatrial junction) Independent Historian Clinical information obtained from an independent historian. History obtained from or confirmed by: EMS Tests considered The following testing was considered but not selected: CT scan head Prescription Management I considered prescription management with: Pain Medication Chronic Conditions Patient?s care impacted by: Other (Substance abuse) Critical Care Time Critical Care Time Critical Care Time: Yes Total Critical Care Time: 35 Attestation: Approximately 35 minutes of critical care time was performed outside of procedures. Critical care time included bedside assessment, interpretation and medical data, consultation with signal intelligence analyst, documentation, frequent re- evaluation, treatment. Discharge Plan Discharge Clinical Impression: Cardiac arrest Patient Disposition: Admitted As Inpatient
--- NOTE | 2023-01-11 12:36 | PM.CCHP ---
History of Present Illness Date of Service: 01/11/23 Attending physician on admission: Jak Solorzano Chief Complaint: Patient found on the floor pulseless and apneic had an LMA that was placed 52yo with depression and suicidal ideation recently discharged from psych found on the floor pulseless and apneic and brought in by EMS with LMA on Ryan after total 30 minutes and after 5 minutes CPR including intubation, 100meq bicarb and 1 mg epinephrine, ROSC restored. Bedside echo with 40% EF, and nonfocal-no valve or pericardial disease--densely acrocyanotic,with profound lactic acidosis The lactate was due to cardiac arrest and persisted due to progessive cardiogenic shock with EF deteriorating to < 20% Also noted JOSE LUIS with creatinine 3.7 initially No acute EKG changes-normal ST-Ts and QT interval f/u K+ 8.3, which I doubt clinically, but gave him insulin and glucose and bicarb. Maximally supported on assist control on vent. with 100% FIO2 and sats dropping I believe that cocaine caused acute cariomyopathy and pulmonary edema Review of Systems Review of Systems: Yes Unobtainable due to mental condition [facility] Past Medical History Medical History Cocaine use disorder Depression Heartburn Hernia Leg swelling Low testosterone in male Family History Family History Mother Emphysema of lung Cancer Father Cancer Emphysema of lung Substance use disorder Surgical History Surgical History Hx of colonoscopy Social History Social History Household Members: Unknown / Unable to assess Housing: Unknown / Unable to assess Do you presently have visiting nurse or other home services: No Unable to assess alcohol history related to: Unable to respond Alcohol intake: never Patient Tobacco Use Status: Never used Tobacco Tobacco use type: Cigarette Cigarette Packs Per Day: 1 e-Cigarette/Vaping Use: Never Used Second Hand Smoke Exposure: Yes Use of substances other than those prescribed or required for medical reasons: Unable to respond Substance Use Type: Crack/Cocaine, Heroin and Marijuana Advance Directives: No service: No Current occupational status: employed Current occupation: [email or web address] director Current occupational exposures/hazards: No Sexual orientation: Straight/Heterosexual Cognitive needs: No Hearing needs: No Vision needs: No Meds Allergies Allergy/AdvReac Type Severity Reaction Status Date / Time trazodone [TRAZODONE] Allergy Intermediate vomiting Verified 01/02/23 15:54 Active Medications: Current Medications Chlorhexidine Gluconate (Chlorhexidine Gluc Oral Rinse 15 Ml Mouthwash) 15 ml BUCCAL Q8H LAUREN Heparin Sodium (Porcine) (Heparin Sodium,Porcine 5,000 Unit/Ml Vial) 5,000 unit SUBCUT Q12H LAUREN Sodium Chloride (Ns) 1,000 mls @ 999 mls/hr IV .Q1H1M LAUREN Stop: 01/11/23 12:45 Last Admin: 01/11/23 11:54 Dose: 999 mls/hr Propofol (Diprivan) 1,000 mg in 100 mls @ 0 mls/hr IVCONT .Q0M LAUREN; Protocol Last Admin: 01/11/23 11:49 Dose: 20 mcg/kg/min, 12.59 mls/hr Sodium Bicarbonate 150 meq/ (Dextrose) 1,000 mls @ 100 mls/hr IV .Q10H LAUREN Pantoprazole Sodium 40 mg/ (Sodium Chloride) 110 mls @ 400 mls/hr IV DAILY@0630 LAUREN Norepinephrine Bitartrate (Levophed) 8 mg in 250 mls @ 0 mls/hr IV .Q0M LAUREN; Protocol Home Medications Medication Instructions Recorded Confirmed Last Taken Type clonidine HCl 0.1 mg tablet 0.1 mg PO TID 12/20/22 01/11/23 Unknown History Physical Exam Vital Signs: Vital Signs: Last Vital Signs Pulse 79 01/11/23 12:19 Resp 25 H 01/11/23 12:19 BP 70/31 L 01/11/23 12:19 FiO2 60 01/11/23 11:50 comatose and intubated acrocyanotic poor bilat carotid upstrokes and marked NVD Diminished bilat breath sounds abdomen soft-no organomegaly CXR with interstitial edema and no free air---ET and NG tubes OK and also CVP---which was 6 Results Labs 01/11/23 11:26 01/11/23 Unknown Labs: Laboratory Results - last 24 hr 01/11/23 01/11/23 01/11/23 11:26 11:26 11:30 MCV 92.1 MCH 30.0 MCHC 32.6 RDW 13.3 Plt Count 229 D MPV 10.4 Immature Gran % (Auto) Cancelled Neut % (Auto) Cancelled Lymph % (Auto) Cancelled [place] % (Auto) Cancelled Eos % (Auto) Cancelled Baso % (Auto) Cancelled Lymph # (Auto) Cancelled [place] # (Auto) Cancelled Eos # (Auto) Cancelled Baso # (Auto) Cancelled Abs Immat Gran (auto) Cancelled Absolute Neuts (auto) Cancelled Absolute Nucleated RBC 0.120 H Nucleated RBC % (auto) 0.5 H VBG pH 7.06 L* VBG pCO2 40 VBG pO2 127 VBG HCO3 11 L VBG O2 Saturation 99.0 VBG Base Excess -18.2 Anion Gap Cancelled Estim Creat Clear Calc Cancelled Estimated GFR Cancelled Random Glucose Cancelled Calcium Cancelled Assessment and Plan (1) Cardiac arrest: Status: Acute (2) Brief reactive psychosis: Status: Acute (3) Cocaine use disorder: Status: Acute (4) Depression with anxiety: Status: Acute (5) Hx of drug abuse: Status: Acute (6) Hypertension: Status: Acute (7) Smoker: Status: Acute (8) Depression: Status: Acute (9) Opiate addiction: Status: Acute (10) Methadone maintenance therapy patient: Status: Acute (11) Fentanyl poisoning: Status: Acute (12) Cocaine abuse with intoxication with complication: Status: Acute (13) Cardiogenic shock: Status: Acute (14) Acute respiratory failure with hypoxia: Status: Acute (15) JOSE LUIS (acute kidney injury): Status: Acute Plan Full support and ventilator--however, prognosis grim lactic acidosis from cardiogenic shock Time Spent With Patient Time: Total time managing care of this patient today _60___ minutes.
[2023-01-11 12:43] LABS: Band Neutrophils Percent 7 % (3-5); Lymphocytes Absolute Manual 1.7 X10*3/uL (1.2-4.9); Lymphocytes Percent Manual 7 % (20-40); Myelocytes Absolute 0.2 X10*/uL; Myelocytes Percent 1 %; Neutrophils Absolute Manual 21.7 X10*3/uL (2.0-8.3); Neutrophils Percent Manual 84 % (45-73); Nucleated Red Blood Cells 1 /100WBC (0-0); Promyelocytes Absolute 0.2 X10*3/uL; Promyelocytes Percent 1 %
[2023-01-11 12:45] LABS: Platelet Estimate NORMAL (NORMAL); Platelet Morphology Comment NOTED
[2023-01-11 12:46] LABS: Burr Cells 1+ (0-2) /OIF; Large Platelet PRESENT; RBC Morphology NOTED
[2023-01-11] MEDS: fentaNYL citrate/PF 100 MCG/2 ML VIAL IVPUSH (12:49)
[2023-01-11 12:56] LABS: Glucose, Whole Blood 47 mg/dL (60-115)
[2023-01-11 12:56] LABS: Glucose, Whole Blood 113 mg/dL (60-115)
[2023-01-11] MEDS: Piperacillin Sodium/Tazobactam 3.375 GM in 0.9 % Sodium Chloride 50 ML IV (13:01)
--- NOTE | 2023-01-11 13:01 | PHA.MEDREC ---
Pharmacy Consult ? Medication Reconciliation Pharmacy has completed the medication reconciliation. Patient intubated. Patient recently discharged 12/22 from . Utilzied claim history and last discharge summary to complete med rec. Fausto HowellD
--- NOTE | 2023-01-11 13:24 | PC.NURSE ---
pt running at the max dose of norephinephrine bp dropping 56/28
[2023-01-11 13:35] LABS: Lactic Acid 11.8 mmol/L (0.5-2.0)
[2023-01-11] MEDS: Sodium Bicarbonate 8.4% 150 MEQ in Dextrose 5 % 850 ML 100 MEQ IV (13:35)
[2023-01-11 13:42] LABS: Appearance Urine Clear; Color Urine Yellow; Glucose Urine UA Negative (Negative); Leukocyte Esterase Urine Negative (Negative); Nitrite Urine Negative (Negative); Urine Blood Negative (Negative); Urine Ketones Negative (Negative); Urine Protein Negative (Neg-Trace)
[2023-01-11] MEDS: Heparin Sodium,Porcine 5,000 UNIT/ML VIAL 5000 UNIT SUBCUT (13:42)
[2023-01-11 13:46] LABS: Ethanol 12 mg/dL
[2023-01-11 13:52] LABS: INTERNATIONAL NORM RATIO 1.5 (0.9-1.1); Prothrombin Time 17.1 SEC (10.0-13.1)
[2023-01-11] MEDS: Vasopressin 20 UNIT/100 ML INFUS..BTL 12 UNIT IV ×2 (13:52→19:48)
--- NOTE | 2023-01-11 13:53 | PC.NURSE ---
called icu to give report unable to take report at this time
[2023-01-11 13:54] LABS: Amphetamine Screen Urine Not Detected (Not Detect); Barbiturates, Urine Not Detected (Not Detect); Benzodiazepines Screen Urine Not Detected (Not Detect); Cannabinoid Screen Urine Not Detected (Not Detect); Cocaine Screen Urine POSITIVE (Not Detect); Fentanyl, urine POSITIVE (Not Detect); Opiate Screen Urine Not Detected (Not Detect); Partial Thromboplastin Time 54.9 SEC (26.0-36.4); Phencyclidine Screen Urine Not Detected (Not Detect)
--- NOTE | 2023-01-11 13:54 | PC.NURSE ---
about 300ml of dark blood stomach constancy in the suction container
[2023-01-11 14:09] LABS: Troponin-I High Sensitivity 266.7 ng/L (<3.5-35.0)
[2023-01-11 14:12] LABS: Albumin Level 3.9 g/dL (3.5-5.0); Alkaline Phosphatase 153 U/L (39-117); Anion Gap 35 (12-20); Bilirubin Total 0.7 mg/dL (0.0-1.0); Blood Urea Nitrogen 29 mg/dL (9-16); Calcium 7.1 mg/dL (8.4-10.2); Carbon Dioxide 12 mmol/L (22-29); Chloride 102 mmol/L (96-108); Estimated Glomerular Filt Rate 17; Glucose Random 87 mg/dL (60-115); Potassium 8.3 mmol/L (3.3-5.1); Sodium 141 mmol/L (135-145)
--- NOTE | 2023-01-11 14:24 | MHC.CM.PN ---
Pt intubated in ICU: unable to participate in CM assessment: Next of contact in EMR without a contact number. Will try to locate contact information and/or await pt extubation and participation in CM assessment
[2023-01-11 14:34] LABS: Alanine Aminotransferase 6396 U/L (0-40); Aspartate Amino Transferase > 4202 U/L (5-37)
[2023-01-11] MEDS: Norepinephrine Bitartrate/D5W 8 MG/250 ML PLAST..BAG 196.13 MG IV ×2 (14:38→15:55)
[2023-01-11 15:02] LABS: Reflex Lactate? Lactic Acid Added
[2023-01-11] MEDS: Insulin Regular, Human 100 UNIT/ML 3 ML VIAL IVPUSH (15:36)
[2023-01-11] MEDS: Chlorhexidine Gluc Oral Rinse 15 ML MOUTHWASH BUCCAL ×2 (15:36→19:43)
[2023-01-11] MEDS: propofoL 1,000 MG/100 ML VIAL 18.88 MG IVCONT (17:05)
[2023-01-11 17:47] LABS: VBG Base Excess -21.6 mmol/L; VBG HCO3 9 mmol/L (22-26); VBG pCO2 36 mmHg; VBG pH 6.99 (7.32-7.43); VBG pO2 64 mmHg
[2023-01-11 17:55] LABS: Glucose, Whole Blood 145 mg/dL (60-115)
[2023-01-11] MEDS: Sodium Bicarbonate 8.4% 50 MEQ/50 ML VIAL 100 MEQ IVPUSH (18:18)
[2023-01-11 18:54] LABS: Acetaminophen LAB < 17 mcg/mL (<30); Salicylate 9.6 mg/dL (15-30)
--- NOTE | 2023-01-11 19:36 | PC.NURSE ---
Patient arrived to ICU at approximately 1420. Patient intubated ETT 7.5 23 cm at the lip and mechanically vented on AC settings 16/500/5/60%, O2 sats maintaining >95%, RR 25-40, breathing labored. Patient sedated on propofol gtt-see EMAR. Patient on vasopressin gtt and maximum dose levophed gtt-see EMAR. Patient's MAP inconsistently >65, HR 70-90s. Extremities dusky, mottled, cool, and cyanotic. Unable to obtain pedal pulses with doppler, radial pulses faint. OGT in place, connected to intermittent wall suction, approximately 100 cc of dark red drainage noted. IO in left lower leg, removed by this RN. CVP of 11 obtained, MD at bedside and aware. Patient urine output <30 cc/hr, MD made aware. 1500-Patient MAPs maintaing <65, MD notified, no new orders at this time. Patient O2 sat maintaining <85%, FiO2 increased to 100% with no effect. Patient ventilated with BVM by this RN with no effect, RT called to bedside. RT and this RN unable to obtain consistent O2 sat, O2 briefly reading 100%, patient placed back on ventilator. Settings changed to 20/450/5/100%. Repeat labs drawn by this RN. VBGs drawn- pH 6.99, HCO3 9. MD notified, 100 MEQs sodium bicarbonate IVP ordered and administered. Nurse to nurse report given to hourly shift RN, care ongoing.
[2023-01-11 19:37] LABS: Sodium 139 mmol/L (135-145)
[2023-01-11 19:39] LABS: Carbon Dioxide 10 mmol/L (22-29); Chloride 98 mmol/L (96-108)
[2023-01-11 19:40] LABS: Anion Gap 40 (12-20); Blood Urea Nitrogen 33 mg/dL (9-16)
[2023-01-11 19:41] LABS: Estimated Glomerular Filt Rate 14; Glucose Random 133 mg/dL (60-115)
[2023-01-11] MEDS: Calcium Gluconate/NaCl,Iso-Osm 1 GM/50 ML PLAST..BAG IV (19:41)
[2023-01-11 19:43] LABS: Calcium 6.6 mg/dL (8.4-10.2); Potassium 8.5 mmol/L (3.3-5.1)
[2023-01-11] MEDS: Dextrose 10 % 250 ML 750 ML IV (19:49)
[2023-01-11 20:20] LABS: Venous Blood Gas Refer to POC result
--- NOTE | 2023-01-11 20:30 | PM.EVENT ---
Event Note Date of Service: 01/11/23 Event Note: The patient was admitted to the ICU today for lactic acidosis from cardiogenic shock after out of hospital cardiopulmonary arrest. He remained hypotensive despite being on maximal support on assist control on the ventilator with 100% FiO2. At 20:13 the patient went into V-tach and became pulseless. CPR and ALS protocol were initiated. 3 rounds of epinephrine were administered. We were unable to achieve ROSC.? ACLS measures were terminated at 20:22.? The patient was pulseless showing asystole on the monitor.? Absent peripheral pulses.? Pupils fixed and dilated.? Absent heart sounds and no spontaneous breathing.? The patient?s roommate? (who is the mother of his son), Gertrudis Mcpherson was notified at 20:25.? They declined to come in.? The patient is not a medical exam candidate.? Organ donation was notified by nursing. Time Spent With Patient Time: Total time managing care of this patient today ____ minutes.
[2023-01-11 21:29] LABS: Reflex Lactate? 2 Y
--- NOTE | 2023-01-11 21:57 | PC.NURSE ---
Assumed care at approximately 1900. Maxed out on pressors- Levophed and Vasopressin. Map < 65. Sinus on tele, HR 90-110. Skin is mottled and dusky in appearance, cool to the touch. Absent pedal pulses, Faint femoral pulses, Faint radial pulses. ANIMAL TECHNICIAN aware, no new orders at this time. Pt sedated on Propolol- titrated down per protocol. Pupils 3mm equal, unreactive. Absent cough/gag, absent pain response, unresponsive to noxious stimuli. Flaccid extremities. Pt vented with 7.5 ETT, 23 @ lip, ACVC settings, 100% FiO2. Lungs dim throughout. No inline secretions. Unable to consistently get O2 sat, ANIMAL TECHNICIAN aware. Labs completed, see report. IV Calcium Glucontate, Dextrose 10% 250ml, and 5u insulin ordered by provider. 2012: Pt went into Vtach, pulseless. ANIMAL TECHNICIAN and RT at bedside. CPR and ALS protocol initiated. x3 Epi given. Pt asystole. Pt pronounced by ANIMAL TECHNICIAN at 2020. ANIMAL TECHNICIAN called family with update. This RN contacted [facility], spoke with Germania Armendariz- pt was declined. Ref# [id number]. Patients aunt Blanquita Garcia. called unit- states that patient has a plot [place] a [place] [facility] [address] in [place], next to his mother. And would most likely go to [facility] in [place], as thats where his mother went. Vielka phone #[phone].
--- NOTE | 2023-01-11 22:12 | PM.DS ---
DS: Providers Provider Date of Service: 01/11/23 Date of admission: 01/11/23 12:29 Date of discharge: 01/11/23 Primary care physician: Angel Feng MD Admitting clinician: Jak Solorzano Attending physician on admission: aJk Solorzano Attending physician on discharge: Jak Solorzano Discharging clinician: Aracelis Wu DS: Diagnosis Discharge Diagnosis (1) Cardiac arrest: Status: Acute (2) Brief reactive psychosis: Status: Acute (3) Cocaine use disorder: Status: Acute (4) Depression with anxiety: Status: Acute (5) Hx of drug abuse: Status: Acute (6) Hypertension: Status: Acute (7) Smoker: Status: Acute (8) Depression: Status: Acute (9) Opiate addiction: Status: Acute (10) Methadone maintenance therapy patient: Status: Acute (11) Fentanyl poisoning: Status: Acute (12) Cocaine abuse with intoxication with complication: Status: Acute (13) Cardiogenic shock: Status: Acute (14) Acute respiratory failure with hypoxia: Status: Acute (15) JOSE LUIS (acute kidney injury): Status: Acute DS: Summary Hospital Course Hospital Course: The patient is a 52-year-old male with a history of polysubstance abuse, depression, suicidal ideation?recently discharged from [facility]? was brought in by ambulance to the emergency room today in cardiopulmonary arrest.?He was found at home unresponsive.?CPR was initiated in the field. He was given epinephrine and sodium bicarb en route.?On arrival to the ER a secure airway was placed he was given additional epinephrine, sodium bicarb, Narcan, dextrose? and eventually obtained ROSC. Initial lab work demonstrated significant acidemia.? Bedside echo initially showed 40% EF.? The lactic acidosis was due to cardiac arrest and persisted due to progressive cardiogenic shock? with his EF deteriorating to < 20%. Follow-up potassium? 8.5;? he was given insulin glucose and bicarb. ? He was maximally supported on assist control on the vent with 100% FiO2? and dropping sats. He remained hypotensive despite being maxed out on pressors. Shortly thereafter he went into V-tach and became pulseless. CPR and ALS protocol were initiated. 3 rounds of epinephrine were administered. We were unable to achieve ROSC.? ACLS measures were terminated at 20:22.? The patient was pulseless showing asystole on the monitor.? Absent peripheral pulses.? Pupils fixed and dilated.? Absent heart sounds and no spontaneous breathing.? The inventory associate arrived during ACLS measures and provided last rites.? Family was notified but declined to come in. The patient is not a medical exam candidate. Organ donation was notified by nursing. Time Spent with Patient Time attestation: Total time managing care of this patient today ____ minutes. Discharge coordination time: Greater than 30 minutes Quality: Safe Use of Opioids Does Pt have an Active Cancer Diagnosis on the Problem List?: No Quality: Stroke Does the patient have a stroke diagnosis?: No Physical Exam Vital Signs: Vital Signs: Last Vital Signs Temp 98.8 F 01/11/23 20:00 Pulse 0 L 01/11/23 20:21 Resp 20 01/11/23 20:00 BP 0/0 L 01/11/23 20:21 Pulse Ox 84 L 01/11/23 19:00 O2 Del Method Mechanical Ventil ation 01/11/23 20:00 O2 Flow Rate 60 01/11/23 13:03 FiO2 100 01/11/23 20:00 DS: Data Data Completed and Pending Labs on day of discharge: Laboratory Results - last 24 hr 01/11/23 01/11/23 01/11/23 11:16 11:21 11:26 WBC RBC Hgb Hct MCV MCH MCHC RDW Plt Count MPV Immature Gran % (Auto) Neut % (Auto) Lymph % (Auto) [place] % (Auto) Eos % (Auto) Baso % (Auto) Lymph # (Auto) [place] # (Auto) Eos # (Auto) Baso # (Auto) Abs Immat Gran (auto) Absolute Neuts (auto) Absolute Nucleated RBC Nucleated RBC % (auto) Neutrophils % (Manual) Band Neutrophils % Lymphocytes % (Manual) Myelocytes % Promyelocytes % Abs Neuts (Manual) Lymphocytes # (Manual) Myelocytes # Promyelocytes # Nucleated RBCs Platelet Estimate Large Platelets Plt Morphology Comment RBC Morphology [place] Cells PT INR APTT VBG pH VBG pCO2 VBG pO2 VBG HCO3 VBG O2 Saturation VBG Base Excess Sodium Cancelled Potassium Cancelled Chloride Cancelled Carbon Dioxide Cancelled Anion Gap Cancelled BUN Cancelled Creatinine Cancelled Estim Creat Clear Calc Cancelled Estimated GFR Cancelled POC Glucose 47 L* 113 Random Glucose Cancelled Lactic Acid Lactic Acid F/U @ 2Hr Calcium Cancelled Total Bilirubin AST ALT Alkaline Phosphatase Total Creatine Kinase Troponin I High Sens Total Protein Albumin Urine Color Urine Appearance Urine pH Ur Specific Wilber Urine Protein Urine Glucose (UA) Urine Ketones Urine Blood Urine Nitrite Ur Leukocyte Esterase Salicylates Urine Opiates Screen Urine Fentanyl Screen Acetaminophen Ur Barbiturates Screen Ur Phencyclidine Scrn Ur Amphetamines Screen U Benzodiazepines Scrn Urine Cocaine Screen U Marijuana (THC) Screen Ethyl Alcohol Blood Type Antibody Screen 01/11/23 01/11/23 01/11/23 11:26 11:30 12:55 WBC 23.8 H RBC 5.70 Hgb 17.1 Hct 52.5 H MCV 92.1 MCH 30.0 MCHC 32.6 RDW 13.3 Plt Count 229 D MPV 10.4 Immature Gran % (Auto) Cancelled Neut % (Auto) Cancelled Lymph % (Auto) Cancelled [place] % (Auto) Cancelled Eos % (Auto) Cancelled Baso % (Auto) Cancelled Lymph # (Auto) Cancelled [place] # (Auto) Cancelled Eos # (Auto) Cancelled Baso # (Auto) Cancelled Abs Immat Gran (auto) Cancelled Absolute Neuts (auto) Cancelled Absolute Nucleated RBC 0.120 H Nucleated RBC % (auto) 0.5 H Neutrophils % (Manual) 84 H Band Neutrophils % 7 H Lymphocytes % (Manual) 7 L Myelocytes % 1 Promyelocytes % 1 Abs Neuts (Manual) 21.7 H Lymphocytes # (Manual) 1.7 Myelocytes # 0.2 Promyelocytes # 0.2 Nucleated RBCs 1 H Platelet Estimate NORMAL Large Platelets PRESENT Plt Morphology Comment NOTED RBC Morphology NOTED [place] Cells 1+ (0-2) PT INR APTT VBG pH 7.06 L* VBG pCO2 40 VBG pO2 127 VBG HCO3 11 L VBG O2 Saturation 99.0 VBG Base Excess -18.2 Sodium Potassium Chloride Carbon Dioxide Anion Gap BUN Creatinine Estim Creat Clear Calc Estimated GFR POC Glucose Random Glucose Lactic Acid 11.8 H* Lactic Acid F/U @ 2Hr Calcium Total Bilirubin AST ALT Alkaline Phosphatase Total Creatine Kinase Troponin I High Sens Total Protein Albumin Urine Color Urine Appearance Urine pH Ur Specific Wilber Urine Protein Urine Glucose (UA) Urine Ketones Urine Blood Urine Nitrite Ur Leukocyte Esterase Salicylates Urine Opiates Screen Urine Fentanyl Screen Acetaminophen Ur Barbiturates Screen Ur Phencyclidine Scrn Ur Amphetamines Screen U Benzodiazepines Scrn Urine Cocaine Screen U Marijuana (THC) Screen Ethyl Alcohol Blood Type Antibody Screen 01/11/23 01/11/23 01/11/23 13:34 13:34 13:34 WBC RBC Hgb Hct MCV MCH MCHC RDW Plt Count MPV Immature Gran % (Auto) Neut % (Auto) Lymph % (Auto) [place] % (Auto) Eos % (Auto) Baso % (Auto) Lymph # (Auto) [place] # (Auto) Eos # (Auto) Baso # (Auto) Abs Immat Gran (auto) Absolute Neuts (auto) Absolute Nucleated RBC Nucleated RBC % (auto) Neutrophils % (Manual) Band Neutrophils % Lymphocytes % (Manual) Myelocytes % Promyelocytes % Abs Neuts (Manual) Lymphocytes # (Manual) Myelocytes # Promyelocytes # Nucleated RBCs Platelet Estimate Large Platelets Plt Morphology Comment RBC Morphology Jasper Cells PT 17.1 H INR 1.5 H APTT 54.9 H D VBG pH VBG pCO2 VBG pO2 VBG HCO3 VBG O2 Saturation VBG Base Excess Sodium 141 Potassium 8.3 H* D Chloride 102 Carbon Dioxide 12 L Anion Gap 35 H BUN 29 H Creatinine 3.72 H Estim Creat Clear Calc TNP Estimated GFR 17 POC Glucose Random Glucose 87 Lactic Acid Lactic Acid F/U @ 2Hr Calcium 7.1 L D Total Bilirubin 0.7 AST > 4202 H ALT 6396 H Alkaline Phosphatase 153 H Total Creatine Kinase Troponin I High Sens 266.7 H* D Total Protein 7.0 Albumin 3.9 Urine Color Urine Appearance Urine pH Ur Specific Wilber Urine Protein Urine Glucose (UA) Urine Ketones Urine Blood Urine Nitrite Ur Leukocyte Esterase Salicylates Urine Opiates Screen Urine Fentanyl Screen Acetaminophen Ur Barbiturates Screen Ur Phencyclidine Scrn Ur Amphetamines Screen U Benzodiazepines Scrn Urine Cocaine Screen U Marijuana (THC) Screen Ethyl Alcohol 12 Blood Type Antibody Screen 01/11/23 01/11/23 01/11/23 13:34 13:34 14:47 WBC RBC Hgb Hct MCV MCH MCHC RDW Plt Count MPV Immature Gran % (Auto) Neut % (Auto) Lymph % (Auto) [place] % (Auto) Eos % (Auto) Baso % (Auto) Lymph # (Auto) [place] # (Auto) Eos # (Auto) Baso # (Auto) Abs Immat Gran (auto) Absolute Neuts (auto) Absolute Nucleated RBC Nucleated RBC % (auto) Neutrophils % (Manual) Band Neutrophils % Lymphocytes % (Manual) Myelocytes % Promyelocytes % Abs Neuts (Manual) Lymphocytes # (Manual) Myelocytes # Promyelocytes # Nucleated RBCs Platelet Estimate Large Platelets Plt Morphology Comment RBC Morphology [place]asper Cells PT INR APTT VBG pH VBG pCO2 VBG pO2 VBG HCO3 VBG O2 Saturation VBG Base Excess Sodium Potassium Chloride Carbon Dioxide Anion Gap BUN Creatinine Estim Creat Clear Calc Estimated GFR POC Glucose Random Glucose Lactic Acid Lactic Acid F/U @ 2Hr Calcium Total Bilirubin AST ALT Alkaline Phosphatase Total Creatine Kinase Troponin I High Sens Total Protein Albumin Urine Color Yellow Urine Appearance Clear Urine pH 6.0 Ur Specific Wilber 1.020 Urine Protein Negative Urine Glucose (UA) Negative Urine Ketones Negative Urine Blood Negative Urine Nitrite Negative Ur Leukocyte Esterase Negative Salicylates Urine Opiates Screen Not Detected Urine Fentanyl Screen POSITIVE H Acetaminophen Ur Barbiturates Screen Not Detected Ur Phencyclidine Scrn Not Detected Ur Amphetamines Screen Not Detected U Benzodiazepines Scrn Not Detected Urine Cocaine Screen POSITIVE H U Marijuana (THC) Screen Not Detected Ethyl Alcohol Blood Type O Positive Antibody Screen NEGATIVE 01/11/23 01/11/23 01/11/23 17:38 17:38 18:26 WBC RBC Hgb Hct MCV MCH MCHC RDW Plt Count MPV Immature Gran % (Auto) Neut % (Auto) Lymph % (Auto) [place] % (Auto) Eos % (Auto) Baso % (Auto) Lymph # (Auto) [place] # (Auto) Eos # (Auto) Baso # (Auto) Abs Immat Gran (auto) Absolute Neuts (auto) Absolute Nucleated RBC Nucleated RBC % (auto) Neutrophils % (Manual) Band Neutrophils % Lymphocytes % (Manual) Myelocytes % Promyelocytes % Abs Neuts (Manual) Lymphocytes # (Manual) Myelocytes # Promyelocytes # Nucleated RBCs Platelet Estimate Large Platelets Plt Morphology Comment RBC Morphology [place] Cells PT INR APTT VBG pH 6.99 L* VBG pCO2 36 VBG pO2 64 VBG HCO3 9 L VBG O2 Saturation 73.0 VBG Base Excess -21.6 Sodium Potassium Chloride Carbon Dioxide Anion Gap BUN Creatinine Estim Creat Clear Calc Estimated GFR POC Glucose 145 H Random Glucose Lactic Acid Lactic Acid F/U @ 2Hr Calcium Total Bilirubin AST ALT Alkaline Phosphatase Total Creatine Kinase Troponin I High Sens Total Protein Albumin Urine Color Urine Appearance Urine pH Ur Specific Wilber Urine Protein Urine Glucose (UA) Urine Ketones Urine Blood Urine Nitrite Ur Leukocyte Esterase Salicylates 9.6 L Urine Opiates Screen Urine Fentanyl Screen Acetaminophen < 17 Ur Barbiturates Screen Ur Phencyclidine Scrn Ur Amphetamines Screen U Benzodiazepines Scrn Urine Cocaine Screen U Marijuana (THC) Screen Ethyl Alcohol Blood Type Antibody Screen 01/11/23 01/11/23 01/11/23 18:26 19:00 19:00 WBC RBC Hgb Hct MCV MCH MCHC RDW Plt Count MPV Immature Gran % (Auto) Neut % (Auto) Lymph % (Auto) [place] % (Auto) Eos % (Auto) Baso % (Auto) Lymph # (Auto) [place] # (Auto) Eos # (Auto) Baso # (Auto) Abs Immat Gran (auto) Absolute Neuts (auto) Absolute Nucleated RBC Nucleated RBC % (auto) Neutrophils % (Manual) Band Neutrophils % Lymphocytes % (Manual) Myelocytes % Promyelocytes % Abs Neuts (Manual) Lymphocytes # (Manual) Myelocytes # Promyelocytes # Nucleated RBCs Platelet Estimate Large Platelets Plt Morphology Comment RBC Morphology [place]ess[place] Cells PT INR APTT VBG pH VBG pCO2 VBG pO2 VBG HCO3 VBG O2 Saturation VBG Base Excess Sodium 139 Potassium 8.5 H* Chloride 98 Carbon Dioxide 10 L* Anion Gap 40 H BUN 33 H D Creatinine 4.42 H* Estim Creat Clear Calc TNP Estimated GFR 14 POC Glucose Random Glucose 133 H Lactic Acid Lactic Acid F/U @ 2Hr 13.0 H* Calcium 6.6 L D Total Bilirubin AST ALT Alkaline Phosphatase Total Creatine Kinase > 82413 H Troponin I High Sens Total Protein Albumin Urine Color Urine Appearance Urine pH Ur Specific Wilber Urine Protein Urine Glucose (UA) Urine Ketones Urine Blood Urine Nitrite Ur Leukocyte Esterase Salicylates Urine Opiates Screen Urine Fentanyl Screen Acetaminophen Ur Barbiturates Screen Ur Phencyclidine Scrn Ur Amphetamines Screen U Benzodiazepines Scrn Urine Cocaine Screen U Marijuana (THC) Screen Ethyl Alcohol Blood Type Antibody Screen Discharge Plan Discharge Date/Time: 01/11/23 08:22 Anticipated Discharge Date/Time: 01/11/23 23:00 Patient Disposition: Discharge Diagnosis: Cardiogenic shock Referrals: Angel Feng MD [Primary Care Provider] - 1 Week Discharge Medications: No Action (DME) syringe with needle, safety 3 mL 22 gauge x 1 1/2 syringe See Rx Instructions .ROUTE DIRECTED Qty: 100 11RF Rx Instructions: As directed lactulose 10 gram/15 mL solution 15 ml PO BEDTIME PRN (Reason: for constipation) Qty: 1419 0RF bupropion HCl 150 mg tablet sustained-release 12 hr 150 mg PO BID 30 Days Qty: 60 2RF furosemide 40 mg tablet 20 mg PO DAILY 30 Days Qty: 15 2RF amlodipine 5 mg tablet 5 mg PO DAILY 30 Days Qty: 30 2RF testosterone cypionate 200 mg/mL oil 100 mg IM QWEEK 28 Days Qty: 2 1RF sildenafil 100 mg tablet 100 mg PO DAILY PRN (Reason: sexual activity) 30 Days Qty: 4 2RF Rx Instructions: administer 30 minutes to 4 hours before activity clonidine HCl 0.1 mg tablet 0.1 mg PO TID omeprazole 40 mg capsule,delayed release(DR/EC) 40 mg PO DAILY 30 Days Qty: 30 2RF aripiprazole 2 mg tablet 2 mg PO BEDTIME 30 Days Qty: 30 1RF
--- NOTE | 2023-02-02 13:25 | PC.NURSE ---
found patient's license in [facility] with dirty clothes; attempted to return to family; no one anserw cell phone; only a frend Elida Bunch listed with no telephone number. [facility] Yasir Arrington
== END 2023-01-11 22:32 | disposition expired | DRG 812 ==
LOC: HO.ED 12:52 → HO.EDOVER 12:58 → HO.ICU 13:00
PROVIDERS: Admitting Provider Internal Medicine Cardiovascular Disease; Emergency Provider Emergency Medicine; PCP Family Medicine; Visit Provider Internal Medicine Cardiovascular Disease
DX: T40.411A Poisoning by fentanyl or fentanyl analogs, accidental (unintentional), initial encounter (principal); J96.01 Acute respiratory failure with hypoxia; I46.9 Cardiac arrest, cause unspecified; F14.20 Cocaine dependence, uncomplicated; F23 Brief psychotic disorder; R57.0 Cardiogenic shock; I10 Essential (primary) hypertension; F11.20 Opioid dependence, uncomplicated; N17.9 Acute kidney failure, unspecified; Z88.5 Allergy status to narcotic agent; Y90.0 Blood alcohol level of less than 20 mg/100 ml; Z79.899 Other long term (current) drug therapy
CPT/HCPCS: 36415; 36600; 71045; 80048; 80053; 80143; 80179; 80307; 81003; 82550; 82803; 82947; 83605; 84484; 85007; 85027; 85610; 85730; 86850; 86900; 86901; 87040; 87205; 93005; 94002; 99285; J0171; J0613; J1643; J2250; J2543; J3010